=== PATIENT | female | born 1990 | race Caucasian/White ===

== ENCOUNTER → 2021-06-02 15:01 | Outpatient (CLI) | payer BC, SELFPAY ==
--- NOTE | 2021-06-02 15:07 | US_ITS ---
FINAL REPORT CLINICAL HISTORY: THYROMEGALY FINDINGS: THYROID ULTRASOUND Sonographic images of the thyroid was obtained. The right lobe of the thyroid measures 4.3 x 2.0 x 1.4 cm. The left lobe of the thyroid measures 4.5 x 1.8 x 1.5 cm. The isthmus measures 3 mm. There is a heterogeneous parenchyma. There are multiple cysts. There are hypoechoic nodules in the right lobe measuring up to 5 mm and nodules on the left measuring up to 9 mm. This is probably related to multinodular goiter. IMPRESSION: TI-RADS 4 subcentimeter nodules as described. No follow-up required. Reviewed, Interpreted and Dictated by Evaristo Tolentino MD Transcribed by Alexsandra Pandya Authenticated by Evaristo Tolentino MD on 06/02/2021 04:38:[address] [facility]
[2021-06-02 16:13] LABS: Basophils # 0.1 K/mm3 (0-0.2); Basophils % 0.8 % (0.1-2.0); Eosinophils # 0.1 K/mm3 (0.0-0.4); Eosinophils % 1.4 % (0.1-12.0); Hematocrit 42.8 % (37.0-47.0); Hemoglobin 13.7 g/dL (12.2-16.2); Lymphocytes % 24.4 % (10-50); Mean Corpuscular HGB Conc 31.9 g/dL (31.8-35.4); Mean Corpuscular Hemoglobin 28.8 pg (27.0-31.2); Mean Corpuscular Volume 90.1 fl (81-99); Mean Platelet Volume 10.7 fl (7.4-10.4); Monocytes # 0.4 K/mm3 (0.1-1.0); Monocytes % 4.7 % (1.7-9.3); Neutrophils # 5.5 K/mm3 (1.8-7.8); Neutrophils % 68.7 % (37.0-80.0); Platelet Count 268 K/mm3 (142-424); Red Blood Count 4.76 M/mm3 (4.20-5.40); Red Cell Distribution Width 14.7 % (11.5-17.5); White Blood Count 8.1 K/mm3 (4.8-10.8)
[2021-06-02 17:24] LABS: Chloride 106 mmol/L (98-107); Potassium 4.3 mmoL/L (3.5-5.1); Sodium 141 mmol/L (136-145)
[2021-06-02 17:27] LABS: Alanine Aminotransferase 56 U/L (12-78); Albumin Level 4.6 g/dl (3.5-5.0); Albumin/Globulin Ratio 1.9 (1.1-1.8); Alkaline Phosphatase 85 U/L (38-126); Anion Gap 14.3 mEq/L (5-15); Aspartate Amino Transferase 42 U/L (14-36); Bilirubin,Total 0.4 mg/dl (0.2-1.3); Blood Urea Nitrogen 11 mg/dl (7-17); Carbon Dioxide 25 mmol/L (22.0-30.0); Estimated Glomerular Filt Rate 85 ml/min (>60); GFR (African American) 103 ML/MIN (>60); Globulin 2.4 g/dL (1.3-3.2); Glucose 83 mg/dl (74-100)
[2021-06-02 17:53] LABS: T4 (Thyroxine) 8.2 ug/dl (5.53-11.0)
[2021-06-02 18:07] LABS: Thyroid Stimulating Hormone 2.57 uIU/mL (0.465-4.68)
[2021-06-02 18:53] LABS: Hemoglobin A1C 5.2 % (4.0-6.0)
[2021-06-04 08:15] LABS: Triiodothyronine (T3) Free 3.1 pg/mL (2.0-4.4)
== END ==
PROVIDERS: Internal Medicine Pulmonary Disease; PCP Internal Medicine; Visit Provider Internal Medicine
DX: Z00.00 Encounter for general adult medical examination without abnormal findings (principal); J45.909 Unspecified asthma, uncomplicated; E01.0 Iodine-deficiency related diffuse (endemic) goiter
CPT/HCPCS: 36415; 76536; 80053; 83036; 84436; 84443; 84481; 85025

== ENCOUNTER → 2022-01-03 15:18 | Outpatient (POV) | payer BC, SELFPAY | PROVIDERS: Visit Provider Dermatology | DX: Z00.00 Encounter for general adult medical examination without abnormal findings (principal) ==

== ENCOUNTER → 2022-03-29 10:24 | Outpatient (CLI) | payer OTHER, SELFPAY ==
--- NOTE | 2022-03-29 10:29 | US_ITS ---
FINAL REPORT TECHNIQUE: Sonographic images of the pelvis were obtained transvaginally. CLINICAL HISTORY: Pelvic Pain, Previous RSO and left dermoid cyst FINDINGS: The uterus is anteverted and anteflexed. It measures 8.4 x 5.6 x 1.2 cm. The endometrial stripe measures 12 mm which can be normal in a premenopausal patient. The myometrium is unremarkable. There is a small amount of fluid in the cervix which can also be normal in a premenopausal patient. The right ovary is surgically absent. The left ovary measures 3.7 x 3.7 x 3.5 cm. There is a cystic lesion adjacent to and possibly arising from the left ovary measuring 2.6 cm. This could be a simple cyst or a parovarian cyst. Color imaging to the left ovary is within normal limits. There is no free fluid. IMPRESSION: 1. The uterus within normal limits for age. 2. Simple left ovarian cyst or par ovarian cyst can follow in 6 or 10 weeks if indicated. 3. Small amount of fluid in the cervix can be normal for a premenopausal patient. Reviewed, Interpreted and Dictated by Kristen Gomes MD Transcribed by Alexsandra Pandya Authenticated and [facility]
[2022-03-29 15:12] LABS: Hemoglobin A1C 5.2 % (4.0-6.0)
[2022-03-29 16:29] LABS: Thyroid Stimulating Hormone 2.68 uIU/mL (0.465-4.68)
[2022-03-31 09:07] LABS: FSH 7.3 mIU/mL (.); LH 4.3 mIU/mL (.); Testosterone,Total 30 ng/dL (13-71)
== END ==
PROVIDERS: PCP Emergency Medicine; Visit Provider Obstetrics & Gynecology
DX: R10.2 Pelvic and perineal pain (principal); E88.81 Metabolic syndrome and other insulin resistance; N83.299 Other ovarian cyst, unspecified side
CPT/HCPCS: 36415; 76830; 82626; 83001; 83002; 83036; 84403; 84443

== ENCOUNTER → 2022-07-11 15:04 | Outpatient (CLI) | payer OTHER, SELFPAY ==
--- NOTE | 2022-07-11 15:04 | US_ITS ---
FINAL REPORT CLINICAL HISTORY: ovarian cyst, Hx of Dermoid cyst COMPARISON: 03/29/2022 FINDINGS: Sonographic images of the pelvis were obtained. The uterus measures 9.0 x 4.8 cm. The endometrium measures 8 mm, which is within normal limits. The right ovary is surgically absent. Within the left ovary is a complex cyst which is heterogeneous with adjacent fluid. Previously noted simple cyst arising from the left ovary is not seen on today's exam. IMPRESSION: Complex, heterogeneous cyst in the left ovary with adjacent fluid may represent a recently ruptured or hemorrhagic cyst. Follow-up ultrasound in 10 weeks is recommended. Reviewed, Interpreted and Dictated by Evaristo Tolentino MD Transcribed by Vanessa Ceron Authenticated and [facility]
== END ==
PROVIDERS: PCP Emergency Medicine; Visit Provider Obstetrics & Gynecology
DX: N83.209 Unspecified ovarian cyst, unspecified side (principal)
CPT/HCPCS: 76830

== ENCOUNTER → 2022-10-19 09:51 | Outpatient (CLI) | payer OTHER, SELFPAY ==
[2022-10-19 10:29] LABS: Basophils # 0.1 K/mm3 (0-0.2); Basophils % 0.8 % (0.1-2.0); Eosinophils # 0.1 K/mm3 (0.0-0.4); Eosinophils % 1.8 % (0.1-12.0); Hematocrit 44.4 % (37.0-47.0); Hemoglobin 13.9 g/dL (12.2-16.2); Lymphocytes # 1.5 K/mm3 (0.7-4.5); Lymphocytes % 20.8 % (10-50); Mean Corpuscular HGB Conc 31.3 g/dL (31.8-35.4); Mean Corpuscular Volume 92.8 fl (81-99); Mean Platelet Volume 10.9 fl (7.4-10.4); Monocytes # 0.4 K/mm3 (0.1-1.0); Monocytes % 4.9 % (1.7-9.3); Neutrophils # 5.3 K/mm3 (1.8-7.8); Neutrophils % 71.7 % (37.0-80.0); Platelet Count 223 K/mm3 (142-424); Red Blood Count 4.78 M/mm3 (4.20-5.40); Red Cell Distribution Width 14.5 % (11.5-17.5); White Blood Count 7.4 K/mm3 (4.8-10.8)
[2022-10-19 11:09] LABS: Alanine Aminotransferase 18 U/L (12-78); Albumin Level 4.2 g/dl (3.5-5.0); Albumin/Globulin Ratio 1.9 (1.1-1.8); Alkaline Phosphatase 76 U/L (38-126); Anion Gap 12.1 mEq/L (5-15); Aspartate Amino Transferase 21 U/L (14-36); Blood Urea Nitrogen 15 mg/dl (7-17); Calcium 9.2 mg/dl (8.4-10.2); Carbon Dioxide 26 mmol/L (22.0-30.0); Chloride 107 mmol/L (98-107); Chol/HDL Ratio 2.8 (1-3.5); Cholesterol 115 mg/dl (140-200); Estimated Glomerular Filt Rate 84 ml/min (>60); GFR (African American) 101 ML/MIN (>60); Globulin 2.2 g/dL (1.3-3.2); Glucose 83 mg/dl (74-100); HDL Cholesterol 41 mg/dl (40-60); Potassium 4.1 mmoL/L (3.5-5.1); Sodium 141 mmol/L (136-145); Total Protein,Serum 6.4 g/dl (6.3-8.2); Triglycerides 165 mg/dl (30-150); VLDL Cholesterol 33 mg/dL (0-40)
[2022-10-19 11:20] LABS: Direct LDL Cholesterol 36.45 mg/dL (100-129)
[2022-10-19 11:23] LABS: 25-OH Vitamin D, Total 65.8 ng/mL (30-100)
[2022-10-19 11:28] LABS: Bilirubin,Total 0.1 mg/dl (0.2-1.3)
[2022-10-19 11:52] LABS: Hemoglobin A1C 4.6 % (4.0-6.0)
== END ==
PROVIDERS: PCP Nurse Practitioner Family; Visit Provider Nurse Practitioner Family
DX: N94.6 Dysmenorrhea, unspecified (principal); G47.30 Sleep apnea, unspecified
CPT/HCPCS: 36415; 80053; 80061; 82306; 82626; 83036; 84443; 85025; 95806

== ENCOUNTER → 2022-10-31 15:17 | Outpatient (CLI) | payer OTHER, SELFPAY | PROVIDERS: PCP Emergency Medicine; Visit Provider Internal Medicine Pulmonary Disease | DX: R00.2 Palpitations (principal); R00.0 Tachycardia, unspecified | CPT/HCPCS: 93225 ==

== ENCOUNTER 2023-04-03 12:03 | Outpatient (CLI) | payer OTHER, SELFPAY ==
[2023-04-03 12:54] LABS: Amphetamine/Metha Screen,Urine Positive ng/ml (<1000)
[2023-04-03 12:55] LABS: Barbiturates Screen,Urine Negative ng/ml (<200); Benzodiazepines Screen,Urine Negative ng/ml (<200)
[2023-04-03 12:56] LABS: Cannabinoid Screen,Urine Negative ng/ml (<50); Cocaine Screen,Urine Negative ng/ml (<300)
[2023-04-03 12:57] LABS: Methadone Screen,Urine Negative ng/ml (<300)
[2023-04-03 12:58] LABS: Opiate Screen,Urine Negative ng/ml (<300); Phencyclidine Screen,Urine Negative ng/ml (<25)
== END 2023-04-03 23:59 ==
LOC: LAB.DROPOF 12:04
PROVIDERS: PCP Nurse Practitioner Family; Visit Provider Nurse Practitioner Family
DX: F90.9 Attention-deficit hyperactivity disorder, unspecified type (principal); Z79.899 Other long term (current) drug therapy
CPT/HCPCS: 80307

== ENCOUNTER 2023-07-31 11:19 | Outpatient (POV) | payer OTHER, SELFPAY ==
--- OUTSIDE RECORDS SUMMARY | 2023-07-31 11:22 | XMS_ITS | Patient Health Record ---
Author Name Unknown Organization [facility] Address [address] [facility] [address] [place] [address] Care Team Providers Care Messenger Copy Name Role Phone Gina Roth [phone] Reason For Referral No Information Medications Medication SIG (Take, Route, Frequency, Duration) Notes Start Date End Date Status OneTouch Ultra - In Vitro for 33 Days Active Spironolactone 100 MG Oral for 90 Days Active metFORMIN HCl 500 MG TAKE ONE TABLET BY MOUTH TWICE DAILY Oral for 30 Days Active Adderall XR 20 MG TAKE ONE CAPSULE BY MOUTH EVERY DAY Oral for 30 Days Active buPROPion HCl ER (XL) 150 MG Oral for 30 Days Active Social History Sex Assigned At : Social History Observation Description Sex Assigned At Female Problems Problem Type SNOMED Code ICD Code Onset Dates Problem Status W/U Status Risk Notes Problem Third trimester (80032827) Supervision of other normal , third trimester (Z34.83) 021 Active confirmed Supervision of other normal , third trimester Problem Gynecological examination normal (30782434256300 4) Cervical smear, as part of routine gynecological examination (Z01.419) 020 Active confirmed Annual without abnormal findings Problem Complex cyst of right ovary (58983925692797 106) Complex cyst of right ovary (N83.291) Active confirmed Other ovarian cyst, right side Problem Admission for routine ultrasound (Z36.89) 021 Active confirmed Encounter for other specified screening Problem *Gestational diabetes mellitus in , Insulin controlled (Code also - Weeks of gestation Z3A) (O24.414) Active confirmed Gestational diabetes mellitus in , insulin controlled Problem History and physical examination, follow-up (209213749) *Follow-up for Non-Malignant conditions (code also - acquired absence of organ (Z90.-) and identify personal hx malignant neoplasm (Z85.-)) (Z09) 021 Active confirmed Postoperative examination Problem Torsion of right ovary (41173633669560 103) Torsion of right ovary (N83.511) 020 Active confirmed Torsion of right ovary and ovarian pedicle Plan Of Treatment Next Appt Details Provider Name:Gina Gonzalez, 09/26/2023 01:00:00 PM, [address] [facility] [facility] [address], [place], [address], Medical (General) History Medical History History ICD Code Anxiety Depression ov cysts Surgical History Surgery Date(Month/Year) Cholecystectomy 2012 Tonsilectomy 2004 2020 Hospitalization History Reason Date(Month/Year) tonsils c/s
== END 2023-07-31 23:59 | disposition home or self-care (01) ==
LOC: SC 11:20
PROVIDERS: PCP Nurse Practitioner Family; Visit Provider Dermatology
DX: Z00.00 Encounter for general adult medical examination without abnormal findings (principal)

== ENCOUNTER 2023-08-29 18:55 | Outpatient (CLI) | payer OTHER, SELFPAY ==
[2023-08-29 19:26] LABS: Basophils # 0.1 K/mm3 (0-0.2); Basophils % 1.1 % (0.1-2.0); Eosinophils # 0.1 K/mm3 (0.0-0.4); Eosinophils % 1.9 % (0.1-12.0); Hematocrit 44.4 % (37.0-47.0); Hemoglobin 14.5 g/dL (12.2-16.2); Lymphocytes # 1.9 K/mm3 (0.7-4.5); Lymphocytes % 26.9 % (10-50); Mean Corpuscular HGB Conc 32.6 g/dL (31.8-35.4); Mean Corpuscular Hemoglobin 30.2 pg (27.0-31.2); Mean Corpuscular Volume 92.5 fl (81-99); Monocytes # 0.4 K/mm3 (0.1-1.0); Monocytes % 5.8 % (1.7-9.3); Neutrophils # 4.6 K/mm3 (1.8-7.8); Neutrophils % 64.3 % (37.0-80.0); Platelet Count 242 K/mm3 (142-424); Red Cell Distribution Width 14.5 % (11.5-17.5); White Blood Count 7.1 K/mm3 (4.8-10.8)
[2023-08-29 19:56] LABS: Alanine Aminotransferase 18 U/L (12-78); Albumin Level 4.6 g/dl (3.5-5.0); Alkaline Phosphatase 62 U/L (38-126); Anion Gap 14.7 mEq/L (5-15); Aspartate Amino Transferase 26 U/L (14-36); Bilirubin,Total 0.5 mg/dl (0.2-1.3); Blood Urea Nitrogen 12 mg/dl (7-17); Calcium 9.8 mg/dl (8.4-10.2); Carbon Dioxide 26 mmol/L (22.0-30.0); Chloride 103 mmol/L (98-107); Chol/HDL Ratio 3.3 (1-3.5); Cholesterol 133 mg/dl (140-200); Estimated Glomerular Filt Rate 83 ml/min (>60); GFR (African American) 101 ML/MIN (>60); Globulin 2.3 g/dL (1.3-3.2); HDL Cholesterol 40 mg/dl (40-60); Potassium 4.7 mmoL/L (3.5-5.1); Sodium 139 mmol/L (136-145); Total Protein,Serum 6.9 g/dl (6.3-8.2); Triglycerides 94 mg/dl (30-150); VLDL Cholesterol 19 mg/dL (0-40)
[2023-08-29 19:59] LABS: Glucose 51 mg/dl (74-100)
[2023-08-29 20:08] LABS: Direct LDL Cholesterol 50.28 mg/dL (100-129)
[2023-08-29 20:14] LABS: 25-OH Vitamin D, Total 58.3 ng/mL (30-100); T4 (Thyroxine) 8.5 ug/dl (5.53-11.0)
[2023-08-29 20:30] LABS: Thyroid Stimulating Hormone 3.29 uIU/mL (0.465-4.68)
[2023-08-31 08:22] LABS: FSH 3.4 mIU/mL (.); LH 4.9 mIU/mL (.)
== END 2023-08-29 23:59 | disposition home or self-care (01) ==
LOC: LAB 18:57
PROVIDERS: PCP Nurse Practitioner Family; Visit Provider Nurse Practitioner Family
DX: N94.6 Dysmenorrhea, unspecified (principal); E11.9 Type 2 diabetes mellitus without complications; Z79.85 Long-term (current) use of injectable non-insulin antidiabetic drugs; D35.2 Benign neoplasm of pituitary gland; E88.81 Metabolic syndrome and other insulin resistance; Z68.27 Body mass index [BMI] 27.0-27.9, adult
CPT/HCPCS: 80050; 80053; 80061; 82306; 82626; 83001; 83002; 84436; 84443; 85025

== ENCOUNTER 2023-09-14 08:05 | Outpatient (CLI) | payer OTHER, SELFPAY ==
--- NOTE | 2023-09-14 08:05 | MR_ITS ---
FINAL REPORT CLINICAL HISTORY: F/U Pituitary adenoma FINDINGS: Multiplanar MR imaging of the brain was performed without and with contrast with attention to the pituitary. There is no evidence of intracranial hemorrhage or mass. No abnormal extra-axial fluid collection is seen. The ventricular size is within normal limits. There is no evidence of shift of the midline structures. The posterior fossa and brainstem have an unremarkable appearance. No area of abnormal restricted diffusion is identified. No abnormal contrast enhancement is seen. Normal major vessel vascular flow voids are noted. There is a 7 mm cystic mass in the left side of the pituitary. This does not show significant contrast enhancement, may represent a pituitary cyst versus cystic adenoma. No other mass is identified. The pituitary stalk is midline. IMPRESSION: No acute intracranial abnormality identified. Pituitary cyst versus cystic adenoma. Reviewed, Interpreted and Dictated by Mars Valera III, MD Transcribed by Marla Schulte Authenticated and [facility]
[2023-09-14] MEDS: GADOTERIDOL INJ 20ML SYRINGE 16 ML IV (09:29)
[2023-09-14] MEDS: SODIUM CHLORIDE 0.9% 10ML SYR (RAD ONLY) 10 ML IV (09:29)
[2023-09-14] MEDS: 0.9 % SODIUM CHLORIDE 50 ML VIAL 25 ML IV (09:29)
== END 2023-09-14 23:59 | disposition home or self-care (01) ==
LOC: RAD 08:05
PROVIDERS: PCP Nurse Practitioner Family; Visit Provider Nurse Practitioner Family
DX: D35.2 Benign neoplasm of pituitary gland (principal)
CPT/HCPCS: 70553; A9576

== ENCOUNTER 2023-10-17 15:37 | Outpatient (CLI) | payer OTHER, SELFPAY ==
--- OUTSIDE RECORDS SUMMARY | 2023-10-17 15:40 | XMS_ITS ---
Author Organization [facility] Address [address] [facility] [address] [place] [address] Care Team Providers Care Purse Framer Name Role Phone Gina Roth [phone] Social History Sex Assigned At : Social History Observation Description Sex Assigned At Female Encounters Encounter Location Date Provider Diagnosis [facility] [address] [facility] [address] [place] [address] 09/25/2023 Gina Roth Plan Of Treatment No Information Progress Notes * Destiny NEGRO NDOB:1990 (33 yo F)Acc No.[id number]:09/25/2023 Patient:?Sarita NEGROiban Goddard :1990???Age:33 Y???Sex:Female [address] [place], [place], [place] [address] Subjective: * Chief Complaints: * ??? * Medical History:? * Surgical History:? * Hospitalization/Major Diagno stic Procedure:? * Medications:? Objective: * Vitals:? * Physical Examination:? Assessment: Plan: * Treatment: * Procedure Codes:? * true * Date:? Generated for Fidel fontana/Reinier/eTransmitting on:?10/17/2023 03:40 PM EDT
--- OUTSIDE RECORDS SUMMARY | 2023-10-17 15:41 | XMS_ITS | Patient Health Record ---
Author Organization [facility] Address [address] [place] [address] Care Team Providers Care Tableau Lead Name Role Phone Gina Roth Unavailable [phone] Results Component Value Reference Range Notes Pap w/reflex HPV Reviewed date:10/01/2023 04:51:41 PM Interpretation:Normal Performing Lab:[facility] [place] CLIA ID [id number], [address], [address], [place] [address], Director - Merna Jung MD Notes/Report: Any Nucleic Acid Amplification testing is performed on the [employer] [place]. Diagnosis: Negative for intraepithelial lesion or malignancy. AP results DIAGNOSIS: Negative for intraepithelial lesion or malignancy. Specimen Adequacy: Satisfactory for interpretation with endocervical/transforma tion zone component present. Pertinent Clinical History/History of Surgery: none Collection Technique: [place] only Results of Last Pap: negative FINAL CHIEF OF ANESTHESIOLOGY CYTOLOGY REPORT LMP: unknown Date of Last Pap: Not provided Specimen Source: Cervical/Endocervical Specimen Type: ThinPrep Other Gynecological Patient Information: Not provided Recommendation: Follow-up based on current clinical guidelines and/or clinical consideration. Screening note: This liquid based pap test was screened manually, without image assistance. Negative Educational Note: The pap screening test aids in the detection of premalignant and malignant states of the cervix. False positive and negative results may occur. It is not a diagnostic test. If abnormal cells are reported, follow-up based on current clinical guidelines and/or clinical consideration is recommended. Chantel Stevens [employer] [employer] CPT Codes: 92486 ICD Codes: Z01.419 Reason For Referral No Information Medications Medication SIG (Take, Route, Fr equency, Duration) Notes Start Date End Date Status Mounjaro 5 MG/0.5ML Subcutaneous for 28 Days Active Adderall XR 20 MG TAKE ONE CAPSULE BY MOUTH EVERY DAY Oral for 30 Days Active Active Social History Tobacco Use: Social History Observation Description Date Details (start date - stop date) Never Smoker NA - NA Sex Assigned At : Social History Observation Description Sex Assigned At Female Tobacco Control (Standard) Question Answer Notes Tobacco use: Nonsmoker Additional Findings: Tobacco non-user Current no nsmoker Problems Problem Type SNOMED Code ICD Code Onset Dates Problem Status W/U Status Risk Notes Problem Third trimester (63504202) Supervision of other normal , third trimester (Z34.83) Active confirmed Supervision of other normal , third trimester Problem Gynecological examination normal (90139850561315 4) Cervical smear, as part of routine gynecological examination (Z01.419) Active confirmed Annual without abnormal findings Problem Complex cyst of right ovary (03392872720134 106) Complex cyst of right ovary (N83.291) Active confirmed Other ovarian cyst, right side Problem Admission for routine ultrasound (Z36.89) Active confirmed Encounter for other specified screening Problem *Gestational diabetes mellitus in , Insulin controlled (Code also - Weeks of gestation Z3A) (O24.414) Active confirmed Gestational diabetes mellitus in , insulin controlled Problem History and physical examination, follow-up (338392411) *Follow-up for Non-Malignant conditions (code also - acquired absence of organ (Z90.-) and identify personal hx malignant neoplasm (Z85.-)) (Z09) 021 Active confirmed Postoperative examination Problem Torsion of right ovary (10215505341563 103) Torsion of right ovary (N83.511) 020 Active confirmed Torsion of right ovary and ovarian pedicle Vital Signs Blood pressure diastolic 78 mm Hg 09/26/2023 Blood pressure systolic 112 mm Hg 09/26/2023 Weight 173 lbs 09/26/2023 Encounters Encounter Location Date Provider Diagnosis [facility] [address] [facility] [address] [place] [address] 09/26/2023 [facility] 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 Z01.419 [facility] [address] [facility] [address] [place] [address] 09/25/2023 [facility] Assessments Encounter Date Diagnosis (ICD Code) Assessment Notes Treatment Notes Treatment Clinical Notes 09/26/2023 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
--- NOTE | 2023-10-17 15:45 | US_ITS ---
FINAL REPORT TECHNIQUE: Limited sonographic images of the thyroid were obtained. CLINICAL HISTORY: Thyroid Goiter COMPARISON: 06/02/2021 FINDINGS: The thyroid demonstrates heterogeneous echogenicity with numerous small gallstones. The right lobe of the thyroid measures 5.0 cm. The left lobe of the thyroid measures 4.9 cm. The isthmus measures 0.4 cm. Largest nodule on the right measures 0.9 cm and appears solid and hypoechoic. Largest nodule in the isthmus measures 0.9 cm consistent with TI-RADS category 4. IMPRESSION: Thyroid nodules as above. Findings are overall stable. No follow-up is more recommended. Reviewed, Interpreted and Dictated by Mars Valera III, MD Transcribed by Marla Schulte Authenticated and [facility]
== END 2023-10-17 23:59 | disposition home or self-care (01) ==
LOC: RAD 15:38
PROVIDERS: PCP Nurse Practitioner Family; Visit Provider Specialist
DX: E04.9 Nontoxic goiter, unspecified (principal)
CPT/HCPCS: 76536

== ENCOUNTER 2023-10-22 16:18 | Outpatient (CLI) | payer OTHER, SELFPAY ==
[2023-10-22 17:57] LABS: Free T4 (Free Thyroxine) 0.89 ng/dl (0.78-2.19)
[2023-10-22 18:10] LABS: Thyroid Stimulating Hormone 3.78 uIU/mL (0.465-4.68)
[2023-10-24 11:33] LABS: Prolactin 25.4 ng/mL (4.8-33.4); Thyroid Peroxidase Antibodies 88 IU/mL (0-34)
== END 2023-10-22 23:59 | disposition home or self-care (01) ==
LOC: LAB 16:19
PROVIDERS: Specialist; PCP Nurse Practitioner Family; Visit Provider Nurse Practitioner
DX: E04.1 Nontoxic single thyroid nodule (principal); D35.2 Benign neoplasm of pituitary gland
CPT/HCPCS: 36415; 84146; 84439; 84443; 86376

== ENCOUNTER 2023-10-24 15:00 | Outpatient (CLI) | payer OTHER, SELFPAY ==
--- NOTE | 2023-10-24 15:00 | CT_ITS ---
FINAL REPORT TECHNIQUE: Thin section axial CT images with coronal and sagittal reformats were performed through the neck. This study was performed with techniques to keep radiation doses as low as reasonably achievable (ALARA). Individualized dose reduction techniques using automated exposure control or adjustment of mA and/or kV according to the patient's size were employed. CLINICAL HISTORY: enlarged thyroid COMPARISON: None FINDINGS: No adenopathy or mass lesion is present . The nasopharynx, hypopharynx, and oropharynx are unremarkable in appearance. Salivary glands are normal. Larynx is unremarkable. The thyroid gland is enlarged with numerous small nodules, which may represent multinodular goiter. IMPRESSION: Enlarged thyroid gland with numerous small nodules, which may represent multinodular goiter. Reviewed, Interpreted and Dictated by Mars Valera III, MD Transcribed by Cookie Estes Authenticated and [facility]
== END 2023-10-24 23:59 | disposition home or self-care (01) ==
LOC: RAD 15:00
PROVIDERS: PCP Nurse Practitioner Family; Visit Provider Nurse Practitioner
DX: E01.0 Iodine-deficiency related diffuse (endemic) goiter (principal)
CPT/HCPCS: 70490

== ENCOUNTER 2024-01-31 15:31 | Outpatient (CLI) | payer OTHER, SELFPAY ==
[2024-01-31 16:49] LABS: Free T4 (Free Thyroxine) 0.88 ng/dl (0.78-2.19)
[2024-01-31 17:02] LABS: Thyroid Stimulating Hormone 0.95 uIU/mL (0.465-4.68)
[2024-02-01 10:17] LABS: Thyroid Peroxidase Antibodies 83 IU/mL (0-34)
== END 2024-01-31 23:59 | disposition home or self-care (01) ==
LOC: LAB 15:33
PROVIDERS: PCP Nurse Practitioner Family; Visit Provider Nurse Practitioner
DX: E06.3 Autoimmune thyroiditis (principal); E04.2 Nontoxic multinodular goiter
CPT/HCPCS: 36415; 84439; 84443; 86376

== ENCOUNTER 2024-04-23 09:59 | Outpatient (CLI) | payer OTHER, SELFPAY ==
--- NOTE | 2024-04-23 10:00 | US_ITS ---
FINAL REPORT TECHNIQUE: Sonographic images of the thyroid gland were obtained in the longitudinal and transverse planes. CLINICAL HISTORY: thyroid goiter, and thyroid us COMPARISON: 10/17/2023 FINDINGS: The right lobe measures 52 x 13 x 15 mm. There are multiple hypoechoic small nodules in the right lobe, largest measures 10 mm and was 9 mm. No convincing new nodules are identified. The left lobe measures 16 x 53 x 13 mm. Multiple small nodules are seen on the left, all subcentimeter. The isthmus measures 3 mm. Hypoechoic nodule measuring approximately 10 mm, was 9 mm, is noted in the isthmus. IMPRESSION: Multiple bilateral predominantly subcentimeter hypoechoic thyroid nodules which are unchanged from the prior exam. Recommend continued follow-up per TI-RADS criteria. Reviewed, Interpreted and Dictated by Kristen Gomes MD Transcribed by Anna Alvares Authenticated and [facility]
== END 2024-04-23 23:59 | disposition home or self-care (01) ==
LOC: RAD 10:00
PROVIDERS: PCP Nurse Practitioner Family; Visit Provider Nurse Practitioner
DX: E04.1 Nontoxic single thyroid nodule (principal)
CPT/HCPCS: 76536

== ENCOUNTER 2024-10-29 14:55 | Outpatient (CLI) | payer OTHER, SELFPAY ==
--- OUTSIDE RECORDS SUMMARY | 2024-09-22 11:00 | XMS_ITS | Encounter Summary ---
[facility] Address [address] [place] [id number] Care Team Providers Care Bar Useful Or Busser Name Role Phone Nayeli Copeland APRN Primary Care Provider [phone] Encounter Details Date Type Department Care Team (Late st Contact Info) Description 09/22/2024 11:00 AM EDT Lab [facility] [address] [place] [phone] examination or test, positive result Social History Tobacco Use Types Packs/Day Years Used Date Smoking Tobacco: Never Smokeless Tobacco: Never Alcohol Use Standard Drinks/Week Comments Not Currently 0 (1 standard drink = 0.6 oz pur e alcohol) socially Adrian Depression Scale Answer Date Recorded Adrian Depression Scale Total 6 06/27/2020 The thought [...] Urine Negative Negative 09/22/2024 11:33 AM EDT [facility] Urine Urine specimen obtained by clean catch procedure / Unknown Collection / Unknown 09/22/2024 10:46 AM EDT 09/22/2024 10:46 AM EDT Narrative [facility] - 09/22/2024 11:33 AM EDT [...] Gina Roth MD URINE ORDERABLES Final Result [facility]
[address] [place] [address], * (ABNORMAL) Urine Culture - Urine, Urine, Clean Catch (09/22/2024 10:46 AM EDT) Urine Culture 25,000 CFU/mL Lactobacillus species(A) SOLA 09/23/2024 1:38 PM EDT [facility] Comment: Based on laboratory diagnosis criteria, these organisms are common urogenital commensal javan and have not been associated with urinary tract infections; clinical correlation is recommended. Urine Urine specimen obtained by clean catch procedure / Unknown Collection / Unknown 09/22/2024 10:46 AM EDT 09/22/2024 10:46 AM EDT [facility] - 09/23/2024 1:38 PM EDT Colonization of the urinary tract without infection is common. Treatment is discouraged unless the patient is symptomatic, , or undergoing an invasive urologic procedure. us Gina Roth MD MICROBIOLOGY - GENERAL ORDERAB LES Final Result Performing Organization Address [facility]/ZIP Co de Phone Number [facility]
[address] [place] [address], * Treponema pallidum AB w/Reflex RPR (09/22/2024 10:46 AM EDT) Treponemal AB Total Non-Reacti ve Non-React consuelo 09/22/2024 2:51 PM EDT [facility] Blood Venipuncture / Unknown 09/22/2024 10:46 AM EDT 09/22/2024 10:46 AM EDT [facility] - 09/22/2024 2:51 PM EDT Reactive results will reflex RPR testing. us Gina Roth MD LAB BLOOD ORDERABLES Final Res ult Performing Organization Address [facility]/ZIP Co de Phone Number [facility]
[address] [place] [address], * Rubella Antibody, IgG (09/22/2024 10:46 AM EDT) Rubella Antibodies, IgG 3.10 Immune >0.99 index 09/23/2024 6:09 AM EDT [facility] Comment: Non-immune <0.90 Equivocal 0.90 - 0.99 Immune >0.99 Blood Venipuncture / Unknown 09/22/2024 10:46 AM EDT 09/22/2024 10:46 AM EDT Narrative [facility] - 09/23/2024 6:09 AM EDT Performed at: [address] [place] [id number] Cupola Operator Insulation: Krishna Villalba PhD, Phone: [phone] us Gina Roth MD LAB BLOOD ORDERABLES Final Res ult [address] [address], * HIV-1 / O / 2 Ag / Antibody 4th Generation (09/22/2024 10:46 AM EDT) HIV DUO Non-Reacti ve Non-Reacti ve 09/22/2024 2:51 PM EDT [facility] Blood Venipuncture / Unknown 09/22/2024 10:46 AM EDT 09/22/2024 10:46 AM EDT Narrative [facility] - 09/22/2024 2:51 PM EDT The [...] MD LAB BLOOD ORDERABLES Final Res ult [facility]
[address] [place] [address], * Hepatitis C Antibody (09/22/2024 10:46 AM EDT) Hepatitis C Ab Non-Reacti ve Non-Reacti ve 09/22/2024 2:51 PM EDT [facility] Blood Venipuncture / Unknown 09/22/2024 10:46 AM EDT 09/22/2024 10:46 AM EDT us Gina Roth MD LAB BLOOD ORDERABLES Final Res ult Performing Organization Address City/[facility]/ZIP Co de Phone Number [facility]
[address] [place] [address], * Hepatitis B Surface Antigen (09/22/2024 10:46 AM EDT) Pathologist [facility] Hepatitis B Surface Ag Non-Reacti ve Non-Reacti ve 09/22/2024 2:43 PM EDT [facility] Blood Venipuncture / Unknown 09/22/2024 10:46 AM EDT 09/22/2024 10:46 AM EDT us Gina Roth MD LAB BLOOD ORDERABLES Final Res ult Performing Organization Address [facility] Co de Phone Number [facility]
[address] [place] [address], [place] [phone] * Glucose, Random (09/22/2024 10:46 AM EDT) [facility] Glucose 99 65 - 99 mg/dL 09/22/2024 2:59 PM EDT [facility] Blood Venipuncture / Unknown 09/22/2024 10:46 AM EDT 09/22/2024 10:46 AM EDT us Gina Roth MD LAB BLOOD ORDERABLES Final Res ult Performing Organization Address [facility] Co de Phone Number [facility]
[address] [place] [address], [place] [phone] * Urine Drug Screen - Urine, Clean Catch (09/22/2024 10:46 AM EDT) Pathologist [facility] THC, Screen, Urine Negative Negative 2024 11:14 AM EDT [facility] Phencyclidine (PCP), Urine Negative Negative 09/22/2024 11:14 AM EDT [facility] Cocaine Screen, Urine Negative Negative 09/22/2024 11:14 AM T [facility] Methamphetamine, Ur Negative Negative 09/22 11:14 AM EDT [facility] Opiate Screen Negative Negative 09/22/2024 11:14 AM EDT [facility] Amphetamine Screen, Urine Negative Negative 09/22/2024 11:14 AM [facility] Benzodiazepine Screen, Urine Negative Negative 09/22/2024 11:14 AM [facility] Tricyclic Antidepressants Screen Negative Negative 09/22/2024 11:14 AM [facility] Methadone Screen, Urine Negative Negative 09/22/2024 11:14 AM [facility] Barbiturates Screen, Urine Negative Negative 09/22/2024 11:14 AM EDT [facility] Oxycodone Screen, Urine Negative Negative 09/22/2024 11:14 AM [facility] Buprenorphine, Screen, Urine Negative Negative 09/22/2024 11:14 AM [facility] Urine Urine specimen obtained by clean catch procedure / Unknown Collection / Unknown 09/22/2024 10:46 AM EDT 09/22/2024 10:46 AM EDT [facility] - 09/22/2024 11:14 AM EDT [...] Gina Roth MD URINE ORDERABLES Final Result [facility]
[address] [place] [address], [place] [phone] * Chlamydia trachomatis, Neisseria gonorrhoeae, Trichomonas vaginalis, [...] - 09/24/2024 6:09 AM EDT Performed at: [address] [place] [id number] Cupola Operator Insulation: Romi Ivory MD, Phone: [phone] Gina Roth MD MICROBIOLOGY - GENERAL ORDERAB LES Final Result Performing Organization Address City/[facility]/ZIP Co de Phone Number [facility] [address] [place] [address], * Antibody Screen (09/22/2024 10:46 AM EDT) Antibody Screen Negative 09/22/2024 11:39 AM EDT [facility] Blood Venipuncture / Unknown 09/22/2024 10:46 AM EDT 09/22/2024 10:46 AM EDT Gina Roth MD BLOOD BANK TEST ORDERABLES Fin al Result [facility]
[address] [place] [id number], * ABO / Rh (09/22/2024 10:46 AM EDT) Pathologist [facility] ABO Type B 09/22/2024 11:23 AM EDT [facility] RH type Positive 09/22/2024 11:23 AM EDT [facility] Blood Venipuncture / Unknown 09/22/2024 10:46 AM EDT 09/22/2024 10:46 AM EDT Gina Roth MD BLOOD BANK TEST ORDERABLES Fin al Result [facility]
[address] [place] [address], * (ABNORMAL) CBC (No Diff) (09/22/2024 10:46 AM EDT) [facility] WBC 7.71 3.40 - 10.80 10*3/mm3 09/22/2024 2:19 PM EDT [facility] RBC 4.40 3.77 - 5.28 10*6/mm3 09/22/2024 2:19 PM EDT [facility] Hemoglobin 13.5 12.0 - 15.9 g/dL 09/22/2024 2:19 PM EDT [facility] Hematocrit 40.0 34.0 - 46.6 % 09/22/2024 2:19 PM EDT [facility] MCV 90.9 79.0 - 97.0 fL 09/22/2024 2:19 PM EDT [facility] MCH 30.7 26.6 - 33.0 pg 09/22/2024 2:19 PM EDT [facility] MCHC 33.8 31.5 - 35.7 g/dL 09/22/2024 2:19 PM EDT [facility] RDW 13.4 12.3 - 15.4 % 09/22/2024 2:19 PM EDT [facility] RDW-SD 44.4 37.0 - 54.0 fl 09/22/2024 2:19 PM EDT [facility] MPV 13.1(H) 6.0 - 12.0 fL 09/22/2024 2:19 PM EDT [facility] Platelets 183 140 - 450 10*3/mm3 09/22/2024 2:19 PM EDT [facility] Blood Venipuncture / Unknown 09/22/2024 10:46 AM EDT 09/22/2024 10:46 AM EDT Gina Roth MD LAB BLOOD ORDERABLES Final Res ult Performing Organization Address City/[facility]/ZIP Co de Phone Number [facility]
[address] [place] [address], * Lab Collection Processing (09/22/2024 10:46 AM EDT) Blood Venipuncture / Unknown 09/22/2024 10:46 AM EDT 09/22/2024 10:46 AM EDT Gina Roth MD LAB BLOOD ORDERABLES Final Res ult Performing Organization Address City/[facility]/ZIP Co de Phone Number [facility]
[address] [place] [address], documented in this encounter Visit Diagnoses Diagnosis examination or test, positive result documented in this encounter Care Teams Bar Useful Or Busser Relationship Specialty Start Date End Date Nayeli Copeland APRN [address] [place] [address] PCP - General Nurse Practitioner 05/26/20 documented as of this encounter
--- OUTSIDE RECORDS SUMMARY | 2024-10-28 09:15 | XMS_ITS ---
Author Organization [facility] Address [address] [facility] [address] [place] [address] Care Team Providers Care Vamp Throater Name Role Phone Gina Roth Unavailable [phone] Nemo James Unavailable [phone] Results Component Value Reference Range Flag Notes Génesis/Bacterial Vaginosis, ROSELIA (Aptima) (Not yet reviewed by provider) Interpretation:+yeast Performing Lab:[facility] - HELENA CLIA ID [id number], [address], [address], [place] [address], Director - Ben Landaverde MD Notes/Report: Bacterial Vaginosis Negative Negative The Aptima BV assay is a real time NAAT TMA assay developed for use on the automated [place] system that detects and discriminates RNA markers from the Lactobacillus species group (L. gasseri, L. crispatus and L. jensenii), Gardnerella vaginalis, and Atopobium vaginae. The Aptima BV assay uses an algorithm for bacterial vaginosis based on detection of target organisms. Génesis species Positive Negative A The CV Assay is a real time TMA assay developed for use on the automated [place] system that detects following Génesis species organisms (C. albicans, C. tropicalis, C. parapsilosis, C. dubliniensis), but the assay does not differentiate among C spp. Génesis glabrata Negative Negative REASON FOR VISIT 16 weeks Medications Medication SIG (Take, Route, Frequency, Duration) Notes Start Date End Date Status Sertraline HCl 25 MG Tablet 1 tablet Orally Once a day A ctive 27-0.8 MG Tablet 1 tablet Orally Active Social History Tobacco Use: Social History Observation Description Date Details (start date - stop date) Never Smoker NA - NA Sex Assigned At : Social History Observation Description Sex Assigned At Female Social History Tobacco Use: Social Info Question Answer Notes Tobacco Control (Standard) Tobacco use: Nonsmoker Additional Findings: Tobacco non-user Current no nsmoker Problems Problem Type SNOMED Code ICD Code Onset Dates Problem Status W/U Status Risk Notes Problem Anxiety (22380899) Anxiety (F41.9) Active confirmed Problem Encounter for supervision of other normal in second trimester (Z34.82) Active confirmed Vital Signs Weight 186.4 lbs 10/28/2024 Encounters Encounter Location Date [facility] [address] [place] [address] 10/28/2024 Nemo James Encounter for supervision of other normal in second trimester Z34.82 ; 15 weeks gestation of Z3A.15 ; Vaginal discharge N89.8 ; Anxiety F41.9 and Acute nonintractable headache, unspecified headache type R51.9 Assessments Encounter Date Diagnosis (ICD Code) Assessment Notes Treatment Notes Treatment Clinical Notes Section Notes 10/28/2024 Encounter for supervision of other normal in second trimester (ICD-10 - Z34.82) 10/28/2024 15 weeks gestation of (ICD-10 - Z3A.15) 10/28/2024 Vaginal discharge (ICD-10 - N89.8) 10/28/2024 Anxiety (ICD-10 - F41.9) 10/28/2024 Acute nonintractable headache, unspecified headache type (ICD-10 - R51.9) Plan Of Treatment Medication Medication Name Sig Start Date Stop Date Notes Sertraline HCl 25 MG Tablet 1 tablet Orally Once a day 27-0.8 MG Tablet 1 tablet Orally Pending Test Test Name Order Date Génesis/Bacterial Vaginosis, ROSELIA (Aptima ) 10/28/2024 Future Test Test Name Order Date *US OB Detailed Anatomy 10/28/2024 Next Appt Details Follow Up: 4 Weeks, Reason: Provider Name:Gina Roth, 11/19/2024 11:00:00 AM, [address], [address], [place], [address], Provider Name:Gina Roth, 11/19/2024 11:15:00 AM, [address], [address], [facility], [address], Provider Name:Gina Roth, 12/24/2024 11:30:00 AM, [address], [address], [place], [address], Provider Name:Gina Gonzalez, 01/21/2025 01:45:00 PM, [address], [address], [place], [address], Provider Name:Gina Gonzalez, 02/04/2025 11:15:00 AM, [address], [address], [place], [address], Provider Name:Gina Gonzalez, 02/18/2025 01:00:00 PM, [address], [address], [place], [address], Provider Name:Nemo James, 03/03/2025 01:30:00 PM, [address], [address], [facility], [address], Provider Name:Gina Roth, 03/18/2025 11:30:00 AM, [address], [address], [facility], [address], Provider Name:Gina Gonzalez, 03/25/2025 11:30:00 AM, [address], [address], [place], [address], Provider Name:Gina Gonzalez, 04/01/2025 11:30:00 AM, [address], [address], [place], [address], Provider Name:Gina Gonzalez, 04/08/2025 11:15:00 AM, [address], [address], [place], [address], Provider Name:Gina Roth, 04/15/2025 11:30:00 AM, [address] [address], [place], [address], History and Physical Notes * Examination Category Sub-Category Detail Notes Category Not es Implant Coordinator Implant Coordinator Status ., Implant Coordinator pr esent during physical exam. Name: Title: [facility] Progress Notes * Destiny NEGRO NDOB:1990 (34 yo F)Acc No.[id number]:10/28/2024 Progress Note Patient: Destiny Aguilar N Provider: Indio James MD :1990 A ge:34 Y S ex:Female Date:10/28/2024 Address:[address] [place] [address] Subjective: * Chief Complaints: * 1 6 weeks * Medical History: Anxiety Depression Ov cysts Hashoimotos *Gestational diabetes mellitus in , Insulin controlled (Code also - Weeks of gestation Z3A) Torsion of right ovary Medical History Verified * Outside Deliverer History: P ap Smear History: D ate of Last Pap/HPV: 2 021 wnl L ast Pap/HPV Results: N ormal Pap H istory of Abnormal Pap Smears: Y es 2015 D iagnostic/Treatment: N one H PV Vaccination Series Complete: Y es M enstrual History: C urrently having menstrual cycles? Y es A ge of Onset: 1 3 L MP: 0 09/09/2023 L ength Between Cycles: 2 1-32 Days L ength of Flow: 2 -7 Days F low Volume: M oderate C ramping Associated with Period: M oderate Discomfort T elodia between periods: 2 9-30 D uration: 3 days S exual Activity/Contraception: E jarad been sexually active? Y es C urrently sexually active? Y es G ghislaine of sexual partners: M adilson A ge of first sexual activity: 1 8 C ontraception: N one H istory of STIs: N one B irth control (Historical) w ithdrawal method. L ast Pap Smear/HPV Date (Historical) 1 05/01/2020, Negative, High Risk HPV Negative. * OB History: P regnancy History (GPA) Total Pregnancies 1 Full Term 1 Living 1 C-Sections 0 C-Sections 1 G P : 1 Para: 1 P regnancy # 1: 0 06/27/2020, Female. * Surgical History: 2020 Cholecystectomy 2012 Tonsilectomy 2003 Surgical History verified. * Hospitalization/Major Diagno stic Procedure: c/s tonsils Hospitalization Verified. * Family History: F amily History Verified.. Abnormal pap, Anxiety, Breast cancer, Cervical cancer, Depression, Diabetes, Hypothyriod, Obesity, Uterine cancer. * Social History: T obacco Use: T obacco Control (Standard) T obacco use: N onsmoker A dditional Findings: Tobacco non-user C urrent nonsmoker S ocial History Verified. * Medications: T akingPrenatal( MV-Min-Fe Fum-FA-DHA) Sertraline HCl 25 MG Tablet 1 tablet Orally Once a day Medication List reviewed and reconciled with the patientTaking ( MV-Min-Fe Fum-FA-DHA) Taking Sertraline HCl 25 MG Tablet 1 tablet Orally Once a day Medication List reviewed and reconciled with the patient Objective: * Vitals: W t: 186.4 lbs. * P ast Orders: L ab:CBC (NO DIFF) (Order Date - 09/22/2024) (Collection Date & Time - 09/22/2024 12:46 PM) Result: Normal Value Reference Range WBC, CORRECTED 7.71 3.40-10.80 - 10*3/mm3 ERYTHROCYTES IN BLOOD BY AUTOMATED COUNT 4.40 3.77-5.28 - 10*6/mm3 HEMOGLOBIN (MG/DL) IN BLOOD 13.5 12.0-15.9 - g/dL HEMATOCRIT (%) BY AUTOMATED COUNT 40.0 34.0-46.6 - % RBC MCV (FL) BY AUTOMATED COUNT 90.9 79.0-97.0 - fL RBC MCH (PG) BY AUTOMATED COUNT 30.7 26.6-33.0 - pg RBC MCHC (G/DL) BY AUTOMATED COUNT 33.8 31.5-35.7 - g/dL RBC RDW (%) BY AUTOMATED COUNT 13.4 12.3-15.4 - % RDW-SD 44.4 37.0-54.0 - fl MEAN PLATELET VOLUME (FL) BY AUTOMATED COUNT 13.1 H 6.0-12.0 - fL PLATELETS BY AUTOMATED COUNT 183 140-450 - 10*3/mm3 L ab:URINE DRUG SCREEN (Order Date - 09/22/2024) (Collection Date & Time - 09/22/2024 12:46 PM) Result: Negative Value Reference Range THC URINE Negative Negative - PHENCYCLIDINE SCREEN URINE Negative Negative - COCAINE, URINE Negative Negative - METHAMPHETAMINE Negative Negative - OPIATES URINE Negative Negative - AMPHETAMINE SCREEN URINE Negative Negative - BENZODIAZEPINE SCREEN, URINE Negative Negative - TRICYCLIC ANTIDEPRESSANTS SCREEN URINE Negative Negative - METHADONE SCREEN, URINE Negative Negative - BARBITURATE SCREEN, URINE Negative Negative - OXYCODONE SCREEN URINE Negative Negative - BUPRENORPHINE Negative Negative - L ab:URINE CULTURE (Order Date 09/22/2024) (Collection Date & Time - 09/22/2024 12:46 PM) Result: lactobacillus - not clinically significant Value Reference Range URINE CULTURE 1371 LACTOBACILLUS SPECIES A - L ab:ANTIBODY SCREEN (Order Date 09/22/2024) (Collection Date & Time - 09/22/2024 12:46 PM) Result: Negative Value Reference Range ANTIBODY SCREEN Negative - L ab:HIV-1/O/2 ANTIGEN/ANTIBODY, 4TH GENERATION (Order Date 09/22/2024) (Collection Date & Time - 09/22/2024 12:46 PM) Result: Negative Value Reference Range HIV DUO Non-Reactive Non-Reacti - L ab:ABO/RH (Order Date 09/22/2024) (Collection Date & Time - 09/22/2024 12:46 PM) Result: B+ Value Reference Range ABO TYPE B - RH TYPE Positive - L ab:RUBELLA ANTIBODY, IGG (Order Date 09/22/2024) (Collection Date & Time - 09/22/2024 12:46 PM) Result: Immune Value Reference Range RUBELLA ANTIBODIES, IGG (REF) 3.10 Immune >0. - index L ab:TREPONEMA PALLIDUM (SYPHILIS) SCREENING CASCADE (Order Date 09/22/2024) (Collection Date & Time - 09/22/2024 12:46 PM) Result: Negative Value Reference Range TREPONEMAL AB TOTAL Non-Reactive Non-Reacti - L ab:GLUCOSE, RANDOM (Order Date 09/22/2024) (Collection Date & Time - 09/22/2024 12:46 PM) Result: Normal Value Reference Range GLUCOSE RANDOM 99 65-99 - mg/dL L ab:CHLAMYDIA TRACHOMATIS, NEISSERIA GONORRHOEAE, TRICHOMONAS VAGINALIS, PCR (Order Date - 09/22/2024) (Collection Date & Time - 09/22/2024 12:46 PM) Result: Negative Value Reference Range CHLAMYDIA TRACHOMATIS, ROSELIA Negative Negative - GONOCOCCUS BY ROSELIA Negative Negative - TRICHOMONAS VAG Negative Negative - L ab:FENTANYL, URINE (Order Date - 09/22/2024) (Collection Date & Time - 09/22/2024 12:46 PM) Result: Negative Value Reference Range FENTANYL URINE Negative Negative - L ab:Non Invasive Testing (Order Date - 09/29/2024) (Collection Date & Time - 09/22/2024 04:12 PM) Result: low fraction Notes: low fraction, needs redrawWolfe, Sydney [facility] 10/06/2024 02:24:45 PM EDT > Pt aware and does not want repeat. * Examination: C haperone: Implant Coordinator Status . , Implant Coordinator present during physical exam. Name: Title: DOUG CARUSO. Assessment: * Assessment: 1. E ncounter for supervision of other normal in second trimester - Z34.82 (Primary)? 2. 1 5 weeks gestation of - Z3A.15 3 . V aginal discharge - N89.8 4 . A nxiety - F41.9 5 . A cute nonintractable headache, unspecified headache type - R51.9 Plan: * Treatment: 2. V aginal discharge L AB: Génesis/Bacterial Vaginosis, ROSELIA (Aptima) 3. A nxiety Continue Sertraline HCl Tablet, 25 MG, 1 tablet, Orally, Once a day. * Procedure Codes: 0 502F HEDIS SUBSEQUENT CARE * Follow Up: 4 Weeks Billing Information: * Visit Code: 16334 Office/Outpatient visit, est patient. 54941 Office/Outpatient visit, est patient. * Procedure Codes: 0502F HEDIS SUBSEQUENT CARE. * Sign off status: Completed Visit Status: C HK (Check Out) true * Provider: Indio James MD Date: 0 10/28/2024 Generated for Fidel fontana/Reinier/Jennifer on: 0 10/29/2024 02:58 PM EDT
--- OUTSIDE RECORDS SUMMARY | 2024-10-29 14:57 | XMS_ITS | Encounter Summary ---
Author Organization [facility] Address [address] [place] [address] Care Team Providers Care Terminal Manager Name Role Phone Nayeli Copeland APRN Primary Care Provider [phone] Encounter Details Date Type Department Care Team (Latest Contact Info) Description 09/22/2024 Travel Social History Tobacco Use Types Packs/Day Years Used Date Smoking Tobacco: Never Smokeless Tobacco: Never Alcohol Use Standard Drinks/Week Comments Not Currently 0 (1 standard drink = 0.6 oz pur e alcohol) socially Bethel Depression Scale Answer Date Recorded Bethel Depression Scale Total 6 06/27/2020 The thought [...] on file documented as of this encounter Visit Diagnoses Not on filedocumented in this encounter Care Teams Terminal Manager Relationship Specialty Start Date End Date Nayeli Copeland APRN [address] [place] [address] PCP - General Nurse Practitioner 05/26/20 documented as of this encounter
--- OUTSIDE RECORDS SUMMARY | 2024-10-29 14:58 | XMS_ITS | Patient Health Record ---
Author Organization [facility] Address [address] [place] [address] Care Team Providers Care Bowling Pin Setters Installer Name Role Phone Gina Roth Unavailable [phone] Nemo James Unavailable [phone] Genoveva Greene Unavailable [phone] Allergies Allergen (clinical drug ingredient) Drug/Non Drug Allergy documented on EMR Reaction Allergy Type Onset Date Status MORPHINE SULFATE (MORPHINE SULFATE TABS) Unspecified Drug Allergy 11/05/2019 Active Results Component Value Reference Range Flag Notes *US OB Complete Transabdomin al/Vaginal Reviewed date:10/07/2024 07:10:53 PM Interpretation: Performing Lab: Notes/Report: [facility] Transabdominal Obstetric Study Report Name: JAMARCUS NEGRO Accession/Encounter No:[id number] Procedure/Order ID: [id number] : 1990 Age: 34 Gender: F Study Date: Sep 22, 2024 Study Time: 09:35 AM Reading Group: Sonja Elizondo MD Referring Group: Gina Roth MD Ordering Phys: Gina Roth MD Performing User: Latrice Neville RDMS Equipment: Affiniti 30 Study Quality: Good Indications: Estimation of gestational age Risk Factors: Post right oophorectomy A transabdominal OB ultrasound was performed. Disclaimer: Ultrasound cannot detect all structural defects or underlying genetic abnormalities. Additionally, some abnormalities develop over time and/or are not detectable until after . General Information Trimester: 1st trimester Gestations: 1 : Intrauterine Gestational Age (Best) Best: 10w 3d Determined by: LMP DALI: 2025-04-17 Gestational Age (LMP) LMP: 10w 3d First Day of LMP: 2024-07-11 DALI: 2025-04-17 Gestational Age (Current US) Current US: 10w 5d DALI: 2025-04-15 General Evaluation cardiac activity: Present Gestational sac: Present Yolk sac: Present pole: Present Biometry (Fetus A) HR: 165 bpm Concrete-rump length:37.8 mm 10w 5d 53% Findings: Anatomy: Sonographic evaluation reveals rodriguez intrauterine . cardiac activity present. growth appears normal. Too early in gestation to assess anatomy, placental position, or amniotic fluid volume. Gestational sac is round. Maternal Anatomy: The right ovary is surgically absent. There is a 3.7 x 2.2 x 3.4 cm complex cyst noted on the left ovary. Conclusions: Rodriguez IUP noted with cardiac activity. Size is consistent with LMP dating. Uterus and bilateral adnexa appear normal. Right oophorectomy noted. Complex cyst with thin internal septations noted on left ovary as above. Adequate blood flow noted to left ovary. Approved By: Sonja Elizondo MD Approved at: October 06, 2024 08:51 PM EDT Electronically Signed on Studycast JAMARCUS NEGRO 2024-09-22 Page 1 of 1 Imaging Center - , [facility] Génesis/Bacterial Vaginosis, ROSELIA (Aptima) (Not yet reviewed by provider) Interpretation:+yeast Performing Lab:[facility] [place] CLIA ID [id number], [address], [address], [place] [address], Director - Ben Landaverde MD Notes/Report: Bacterial Vaginosis Negative Negative The Aptima BV assay uses an algorithm for bacterial vaginosis based on (L. gasseri, L. crispatus and L. jensenii), Gardnerella vaginalis, and Atopobium vaginae. system that detects and discriminates RNA markers from the Lactobacillus species group The Aptima BV assay is a real time NAAT TMA assay developed for use on the automated Hampton detection of target organisms. Génesis species Positive Negative A The CV Assay is a real time TMA assay developed for use on the automated Hampton system that detects following Génesis species organisms (C. albicans, C. tropicalis, C. parapsilosis, C. dubliniensis), but the assay does not differentiate among C spp. Génesis glabrata Negative Negative CBC (NO DIFF) Reviewed date:09/22/2024 02:36:12 PM Interpretation:Normal Performing Lab: Notes/Report: WBC, CORRECTED 7.71 3.40-10.80 10*3/mm3 ERYTHROCYTES IN BLOOD BY AUTOMATED COUNT 4.40 3.77-5.28 10*6/mm3 HEMOGLOBIN (G/DL) IN BLOOD 13.5 12.0-15.9 g/dL HEMATOCRIT (%) BY AUTOMATED COUNT 40.0 34.0-46.6 % RBC MCV (FL) BY AUTOMATED COUNT 90.9 79.0-97.0 fL RBC MCH (PG) BY AUTOMATED COUNT 30.7 26.6-33.0 pg RBC MCHC (G/DL) BY AUTOMATED COUNT 33.8 31.5-35.7 g/dL RBC RDW (%) BY AUTOMATED COUNT 13.4 12.3-15.4 % RDW-SD 44.4 37.0-54.0 fl MEAN PLATELET VOLUME (FL) BY AUTOMATED COUNT 13.1 6.0-12.0 fL H PLATELETS BY AUTOMATED COUNT 183 140-450 10*3/mm3 Lab specimens received at a [facility].?See result details for the performing location information. URINE DRUG SCREEN Reviewed date:09/22/2024 11:32:04 AM Interpretation:Negative Performing Lab: Notes/Report: Cutoff For Drugs Screened: Amphetamines 500 ng/ml [...] test, particularly when unconfirmed results are used. THC URINE Negative Negative PHENCYCLIDINE SCREEN URINE Negative Negative COCAINE, URINE Negative Negative METHAMPHETAMINE Negative Negative OPIATES URINE Negative Negative AMPHETAMINE SCREEN URINE Negative Negative BENZODIAZEPINE SCREEN, URINE Negative Negative TRICYCLIC ANTIDEPRESSANTS SCREEN URINE Negative Negative METHADONE SCREEN, URINE Negative Negative BARBITURATE SCREEN, URINE Negative Negative OXYCODONE SCREEN URINE Negative Negative BUPRENORPHINE Negative Negative Lab specime ns received at a [facility].?See result details for the performing location information. URINE CULTURE Reviewed date:09/24/2024 08:54:55 AM Interpretation:lactobacillus - not clinically significant Performing Lab: Notes/Report: Colonization of the urinary tract without infection is common. Treatment is discouraged unless the patient is symptomatic, , or undergoing an invasive urologic procedure. URINE CULTURE 1371 LACTOBACILLUS SPECIES A Based on laboratory diagnosis criteria, these organisms are common urogenital commensal javan and have not been associated with urinary tract infections; clinical correlation is recommended. 25,000 CFU/mL Lactobacillus species Lab specimens received at a [facility].?See result details for the performing location information. ANTIBODY SCREEN Reviewed date:09/22/2024 02:00:14 PM Interpretation:Negative Performing Lab: Notes/Report: ANTIBODY SCREEN Negative Lab speci mens received at a [facility].?See result details for the performing location information. HEPATITIS C ANTIBODY Reviewed date:09/22/2024 03:14:39 PM Interpretation:Negative Performing Lab: Notes/Report: HEPATITIS C ANTIBODY Non-Reactive Non-Reacti La b specimens received at a [facility].?See result details for the performing location information. HIV-1/O/2 ANTIGEN/ANTIBODY, 4TH GENERATION Reviewed date:09/22/2024 03:14:39 PM Interpretation:Negative Performing Lab: Notes/Report: The HIV antibody/antigen combo assay is a qualitative assay for HIV that includes the p24 antigen as well as antibodies to HIV types 1 and 2. This test is intended to be used as a screening assay in the diagnosis of HIV infection in patients over the age of 2. HIV DUO Non-Reactive Non-Reacti Lab specimen s received at a [facility].?See result details for the performing location information. ABO/RH Reviewed date:09/22/2024 02:00:14 PM Interpretation:B+ Performing Lab: Notes/Report: ABO TYPE B RH TYPE Positive Lab specimens received at a [facility].?See result details for the performing location information. HEPATITIS B SURFACE ANTIGEN Reviewed date:09/22/2024 03:14:39 PM Interpretation:Negative Performing Lab: Notes/Report: HEPATITIS B SURFACE ANTIGEN Non-Reactive Non-Reacti Lab specimens received at a [facility].?See result details for the performing location information. RUBELLA ANTIBODY, IGG Reviewed date:09/24/2024 08:54:55 AM Interpretation:Immune Performing Lab: Notes/Report: Performed at: [address] [place] [id number] Tobacco Sweeper: Krishna Villalba PhD, Phone: [phone] RUBELLA ANTIBODIES, IGG (REF) 3.10 Immune >0. index Non-immune <0.90 Immune >0.99 Equivocal 0.90 - 0.99 Lab specimens received at a [facility].?See result details for the performing location information. TREPONEMA PALLIDUM (SYPHILIS ) SCREENING CASCADE Reviewed date:09/22/2024 03:14:39 PM Interpretation:Negative Performing Lab: Notes/Report: Reactive results will reflex RPR testing. TREPONEMAL AB TOTAL Non-Reactive Non-Reacti Lab specimens received at a [facility].?See result details for the performing location information. GLUCOSE, RANDOM Reviewed date:09/22/2024 03:14:39 PM Interpretation:Normal Performing Lab: Notes/Report: GLUCOSE RANDOM 99 65-99 mg/dL Lab speci mens received at a [facility].?See result details for the performing location information. CHLAMYDIA TRACHOMATIS, NEISS ERIA GONORRHOEAE, TRICHOMONAS VAGINALIS, PCR Reviewed date:09/24/2024 08:54:55 AM Interpretation:Negative Performing Lab: Notes/Report: Performed at: [address] [place] [id number] Tobacco Sweeper: Romi Ivory MD, Phone: [phone] CHLAMYDIA TRACHOMATIS, ROSELIA Negative Negative GONOCOCCUS BY ROSELIA Negative Negative TRICHOMONAS VAG Negative Negative Lab speci mens received at a [facility].?See result details for the performing location information. Non Invasive Testin g Reviewed date:10/06/2024 02:24:47 PM Interpretation:low fraction Performing Lab: Notes/Report: low fraction FENTANYL, URINE Reviewed date:09/22/2024 02:00:15 PM Interpretation:Negative Performing Lab: Notes/Report: Negative Threshold: Fentanyl 5 ng/mL The normal value for the drug tested is negative. This report includes final unconfirmed screening results to be used for medical treatment purposes only. Unconfirmed results must not be used for non-medical purposes such as employment or legal testing. Clinical consideration should be applied to any drug of abuse test, particularly when unconfirmed results are used. ? ? ? FENTANYL URINE Negative Negative Lab specim ens received at a [facility].?See result details for the performing location information. Reason For Referral No Information Medications Medication [...] Status W/U Status Risk Notes Problem Anxiety (15260691) Anxiety (F41.9) Active confirmed Problem Encounter for supervision of other normal in second trimester (Z34.82) Active confirmed Vital Signs Weight 186.4 lbs 10/28/2024 Encounters Encounter Location Date Provider Diagnosis [facility] [address] [facility] [address] [place] [address] 09/02/2024 Gina Roth with uncertain viability, single or unspecified fetus O36.80X0 [facility] [address] [facility] [address] [place] [address] 09/22/2024 Gina Roth Encounter for test, result positive Z32.01 [facility] [address] [address] [place] [address] 10/28/2024 Nemo James Encounter for supervision of other normal in second trimester Z34.82 ; 15 weeks gestation of Z3A.15 ; Vaginal discharge N89.8 ; Anxiety F41.9 and Acute nonintractable headache, unspecified headache type R51.9 [facility] [address] [facility] [address] [place] [address] 09/22/2024 Gina Roth with uncertain viability, single or unspecified fetus O36.80X0 Assessments Encounter Date Diagnosis (ICD Code) Assessment Notes Treatment Notes Treatment Clinical Notes Section Notes 09/22/2024 Encounter for test, result positive (ICD-10 - Z32.01) 09/22/2024 with uncertain viability, single or unspecified fetus (ICD-10 - O36.80X0) 09/02/2024 with uncertain viability, single or unspecified fetus (ICD-10 - O36.80X0) 10/28/2024 15 weeks gestation of (ICD-10 - Z3A.15) 10/28/2024 Encounter for supervision of other normal in second trimester (ICD-10 - Z34.82) 10/28/2024 Vaginal discharge (ICD-10 - N89.8) 10/28/2024 Anxiety (ICD-10 - F41.9) 10/28/2024 Acute nonintractable headache, unspecified headache type (ICD-10 - R51.9) Plan Of Treatment Pending Test Test Name Order Date Génesis/Bacterial Vaginosis, ROSELIA (Aptima ) 10/28/2024 Future Test Test Name Order Date *US OB Detailed Anatomy 10/28/2024 Next Appt Details Provider Name:Gina Roth, 11/19/2024 11:00:00 AM, [address], [place], [address], Provider Name:Gina Roth, 11/19/2024 11:15:00 AM, [address], [address], [place], [address], Provider Name:Gina Roth, 12/24/2024 11:30:00 AM, [address], [address], [place], [address], Provider Name:Gina Roth, 01/21/2025 01:45:00 PM, [address], [address], [place], [address], Provider Name:Gina Roth, 02/04/2025 11:15:00 AM, [address], [address], [place], [address], Provider Name:Gina Roth, 02/18/2025 01:00:00 PM, [address], [address], [place], [address], Provider Name:Nemo James, 03/03/2025 01:30:00 PM, [address], [address], [place], [address], Provider Name:Gina Roth, 03/18/2025 11:30:00 AM, [address], [address], [place], [address], Provider Name:Gina Roth, 03/25/2025 11:30:00 AM, [address], [address], [place], [address], Provider Name:Gina Gonzalez, 04/01/2025 11:30:00 AM, [address], [address], [place], [address], Provider Name:Gina Gonzalez, 04/08/2025 11:15:00 AM, [address], [address], [place], [address], Provider Name:Gina Roth, 04/15/2025 11:30:00 AM, [address], [place], [address], Insurance Providers Payer Name Payer Address Payer Phone Subscriber Number Group Number Insured Name Patient Relationship to Insured Coverage Start Date Coverage End Date [facility] [address] [place] [address] [phone] [id number] Jamarcus Negro Self - patient is the insured Medical (General) History Medical History History ICD Code Anxiety Depression ov cysts hashoimotos *Gestational diabetes mellit us in , Insulin controlled (Code also - Weeks of gestation Z3A) O24.414 Torsion of right ovary N83.511 Surgical History Surgery Date(Month/Year) 2020 Cholecystectomy 2012 Tonsilectomy 2004 Hospitalization History Reason Date(Month/Year) tonsils c/s
--- OUTSIDE RECORDS SUMMARY | 2024-10-29 14:58 | XMS_ITS | Clinical Summary ---
Author Organization [facility] Address [address] [place] [address] Care Team Providers Care Newspaper Photographer Name Role Phone Nayeli Copeland APRN Primary Care Provider [phone] Allergies No known active allergies Medications Vit-Fe Fumarate-FA ( 27-) 27-1 MG tablet tablet Take 1 tablet by mouth Daily. Active sertraline (ZOLOFT) 25 MG tablet Take 1 tablet by mouth Daily. 1 Active Lancets miscIndications: Gestational diabetes mellitus (GDM), antepartum, gestational diabetes method of control unspecified For use with glucose monitoring 6-8 times daily 200 each 5 1 Active Insulin Pen Needle 32G X 4 MM miscIndications: Gestational diabetes mellitus (GDM), antepartum, gestational diabetes method of control unspecified For use with insulin injections, daily 50 each 2 1 Active ferrous sulfate 325 (65 FE) MG tablet Take 1 tablet by mouth 2 (Two) Times a Day With Meals. 120 tablet 1 06/29/2020 9:24 AM EDT 1 Active docusate sodium 100 MG capsule Take 1 capsule by mouth 2 (Two) Times a Day As Needed for Constipation. 120 capsule 1 06/29/2020 9:24 AM EDT 1 Active ibuprofen (ADVIL,MOTRIN) 600 MG tablet Take 1 tablet by mouth Every 6 (Six) Hours. 60 tablet 1 06/29/2020 9:24 AM EDT 1 Active ibuprofen (ADVIL,MOTRIN) 600 MG tablet Take 1 tablet by mouth Every 6 (Six) Hours As Needed for pain. 30 tablet 09/21/2020 1:33 PM EDT 1 Active oxyCODONE-acetam inophen (PERCOCET) 5-325 MG per tablet Take 1 tablet by mouth Every 4-6 Hours As Needed for pain. 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 Gestational diabetes mellitu s in , insulin controlled 06/25/2020 Torsion of right ovary and ovarian pedicle 11/18 Encounters Date Type Department Care Team Description 09/22/2024 11:00 AM EDT Lab [facility] [address] [place] [address] examination or test, positive result 09/22/2024 Travel from Last 3 Months Family History Medical History Relation Name Comments Diabetes Father Hypertension Father Bipolar disorder Maternal Aunt Thyroid disease Maternal Aunt Anxiety disorder Maternal Grandfather Cancer Maternal Grandfather Diabetes Maternal Grandfather Heart attack Maternal Grandfather Kidney disease Maternal Grandfather Liver disease Maternal Grandfather Cancer Maternal Grandmother Hypertension Maternal Grandmother Anxiety disorder Mother Hyperlipidemia Mother Hypertension Mother Diabetes Paternal Grandfather Relation Name Status Comments Father Maternal Aunt Alive Maternal Grandfather Maternal Grandmother Mother Alive Paternal Grandfather Alive Social History Tobacco Use Types Packs/Day Years Used Date Smoking Tobacco: Never Smokeless Tobacco: Never Alcohol Use Standard Drinks/Week Comments Not Currently 0 (1 standard drink = 0.6 oz pur e alcohol) socially Salix Depression Scale Answer Date Recorded Salix Depression Scale Total 6 06/27/2020 The thought [...] on file Sexual Orientation Not on file Last Filed Vital Signs Vital Sign Reading Time Taken Comments Blood Pressure 102/61 06/29/2020 8:00 AM EDT Pulse 88 06/29/2020 8:00 AM EDT Temperature 36.7 C (98 F) 06/29/2020 8:00 AM EDT Respiratory Rate 16 06/29/2020 8:00 AM EDT Oxygen Saturation 96% 06/27/2020 2:05 AM EDT Inhaled Oxygen Concentration - - Weight 91.2 kg (201 lb) 06/25/2020 11:05 AM EDT Height 170.2 cm (5' 7 ) 06/25/2020 11:05 AM EDT Body Mass Index 31.48 06/25/2020 11:05 AM EDT Plan of Treatment Health Maintenance Due Date Last Done Comments Annual Gynecologic Pelvic an d Breast Exam 1991 TDAP/TD VACCINES (2 - Tdap) 10/14/2012 10/14/2002 ANNUAL PHYSICAL 09/25/2019 COVID-19 Vaccine (2023-2 5 season) 2023 11/25/2020, 10/27/2020 INFLUENZA VACCINE 12/10/2024 01/23/2023, 01/09/2022, 04/25/2021 HEPATITIS C SCREENING Completed 09/22/2024 , 11/27/2019 Pneumococcal Vaccine 0-49 Aged Out No longer eligible based on patient's age to complete this topic Procedures Procedure Name Priority Date/Time Associated Diagnosis Comments ANTIBODY SCREEN Routine 09/22/2024 10:46 AM EDT examination or test, positive result ABO/RH Routine 09/22/2024 10:46 AM EDT examination or test, positive result FENTANYL, URINE Routine 09/22/2024 10:46 AM EDT examination or test, positive result TREPONEMA PALLIDUM AB W/REFLEX RPR Routine 09/22/2024 [...] AM EDT examination or test, positive result from Last 3 Months Results * Treponema pallidum AB w/Reflex RPR (09/22/2024 10:46 AM EDT) Treponemal AB Total Non-Reacti ve Non-React consuelo 09/22/2024 2:51 PM EDT [facility] Blood Venipuncture / Unknown 09/22/2024 10:46 AM EDT 09/22/2024 10:46 AM EDT Narrative [facility] - 09/22/2024 2:51 PM EDT Reactive results will reflex RPR testing. us Gina Roth MD LAB BLOOD ORDERABLES Final Res ult Performing Organization Address City/[facility]/ZIP Co de Phone Number [facility]
[address] [place] [address], * Lab Collection Processing (09/22/2024 10:46 AM EDT) Blood Venipuncture / Unknown 09/22/2024 10:46 AM EDT 09/22/2024 10:46 AM EDT us Gina Roth MD LAB BLOOD ORDERABLES Final Res ult [facility]
[address] [place] [address], * HIV-1 / O / 2 Ag / Antibody 4th Generation (09/22/2024 10:46 AM EDT) HIV DUO Non-Reacti ve Non-Reacti ve 09/22/2024 2:51 PM EDT [facility] Blood Venipuncture / Unknown 09/22/2024 10:46 AM EDT 09/22/2024 10:46 AM EDT Narrative [facility] - 09/22/2024 2:51 PM EDT The HIV antibody/antigen combo assay is a qualitative assay for HIV that includes the p24 antigen as well as antibodies to HIV types 1 and 2. This test is intended to be used as a screening assay in the diagnosis of HIV infection in patients over the age of 2. Gina Roth MD LAB BLOOD ORDERABLES Final Res ult [facility]
[address] [place] [address], * Chlamydia trachomatis, Neisseria gonorrhoeae, Trichomonas vaginalis, PCR - Urine, Urine, Clean Catch (09/22/2024 10:46 AM EDT) Chlamydia trachomatis, ROSELIA Negative Negative 09/24/2024 6:09 AM EDT [facility] Gonococcus by ROSELIA Negative Negative 09/24/2024 6:09 AM EDT [facility] Trichomonas vaginosis Negative Negative 09/24/2024 6:09 AM EDT [facility] Urine Urine specimen obtained by clean catch procedure / Unknown Collection / Unknown 09/22/2024 10:46 AM EDT 09/22/2024 10:46 AM EDT [facility] - 09/24/2024 6:09 AM EDT Performed at: [address] [place] [address] [id number] Head Of Cytogenetics: Romi Ivory MD, Phone: [phone] Gina Roth MD MICROBIOLOGY - GENERAL ORDERAB LES Final Result [facility] [address] [place] [address], [place] [phone] * Hepatitis C Antibody (09/22/2024 10:46 AM EDT) Hepatitis C Ab Non-Reacti ve Non-Reacti ve 09/22/2024 2:51 PM EDT [facility] Blood Venipuncture / Unknown 09/22/2024 10:46 AM EDT 09/22/2024 10:46 AM EDT us Gina Roth MD LAB BLOOD ORDERABLES Final Res ult [facility]
[address] [place] [address], [place] [phone] * Urine Drug Screen - Urine, Clean Catch (09/22/2024 10:46 AM EDT) THC, Screen, Urine Negative Negative 2024 11:14 AM EDT [facility] Phencyclidine (PCP), Urine Negative Negative 09/22/2024 11:14 AM EDT [facility] Cocaine Screen, Urine Negative Negative 09/22/2024 11:14 AM EDT [facility] Methamphetamine, Ur Negative Negative 09/22 11:14 AM EDT [facility] Opiate Screen Negative Negative 09/22/2024 11:14 AM EDT [facility] Amphetamine Screen, Urine Negative Negative 09/22/2024 11:14 AM EDT [facility] Benzodiazepine Screen, Urine Negative Negative 09/22/2024 11:14 AM EDT [facility] Tricyclic Antidepressants Screen Negative Negative 09/22/2024 11:14 AM EDT [facility] Methadone Screen, Urine Negative Negative 09/22/2024 11:14 AM EDT [facility] Barbiturates Screen, Urine Negative Negative 09/22/2024 11:14 AM EDT [facility] Oxycodone Screen, Urine Negative Negative 09/22/2024 11:14 AM EDT [facility] Buprenorphine, Screen, Urine Negative Negative 09/22/2024 11:14 AM [facility] Urine Urine specimen obtained by clean catch procedure / Unknown Collection / Unknown 09/22/2024 10:46 AM EDT 09/22/2024 10:46 AM EDT Narrative [facility] - 09/22/2024 11:14 AM EDT Cutoff [...] Gina Roth MD URINE ORDERABLES Final Result [facility]
[address] [place] [address], * ABO / Rh (09/22/2024 10:46 AM EDT) ABO Type B 09/22/2024 11:23 AM EDT [facility] RH type Positive 09/22/2024 11:23 AM EDT [facility] Blood Venipuncture / Unknown 09/22/2024 10:46 AM EDT 09/22/2024 10:46 AM EDT Gina Roth MD BLOOD BANK TEST ORDERABLES Fin al Result [facility]
[address] [place] [address], * Fentanyl, Urine - Urine, Clean Catch (09/22/2024 10:46 AM EDT) Fentanyl, Urine Negative Negative 09/22/2024 11:33 AM EDT [facility] Urine Urine specimen obtained by clean catch procedure / Unknown Collection / Unknown 09/22/2024 10:46 AM EDT 09/22/2024 10:46 AM EDT [facility] - 09/22/2024 11:33 AM EDT Negative [...] Gina Roth MD URINE ORDERABLES Final Result [facility]
[address] [place] [address], * Rubella Antibody, IgG (09/22/2024 10:46 AM EDT) Rubella Antibodies, IgG 3.10 Immune >0.99 index 09/23/2024 6:09 AM EDT [facility] Comment: Non-immune <0.90 Equivocal 0.90 - 0.99 Immune >0.99 Blood Venipuncture / Unknown 09/22/2024 10:46 AM EDT 09/22/2024 10:46 AM EDT [facility] - 09/23/2024 6:09 AM EDT Performed at: [address] [place] [id number] Head Of Cytogenetics: Krishna Villalba PhD, Phone: [phone] Gina Roth MD LAB BLOOD ORDERABLES Final Res ult [facility] [address] [place] [id number], * Hepatitis B Surface Antigen (09/22/2024 10:46 AM EDT) Hepatitis B Surface Ag Non-Reacti ve Non-Reacti ve 09/22/2024 2:43 PM EDT [facility] Blood Venipuncture / Unknown 09/22/2024 10:46 AM EDT 09/22/2024 10:46 AM EDT us Gina Roth MD LAB BLOOD ORDERABLES Final Res ult [facility]
[address] [place] [address], * (ABNORMAL) CBC (No Diff) (09/22/2024 10:46 AM EDT) WBC 7.71 3.40 - 10.80 10*3/mm3 09/22/2024 2:19 PM EDT [facility] RBC 4.40 3.77 - 5.28 10*6/mm3 09/22/2024 2:19 PM EDT [facility] Hemoglobin 13.5 12.0 - 15.9 g/dL 09/22/2024 2:19 PM EDT [facility] Hematocrit 40.0 34.0 - 46.6 % 09/22/2024 2:19 PM EDT [facility] MCV 90.9 79.0 - 97.0 fL 09/22/2024 2:19 PM EDT [facility] MCH 30.7 26.6 - 33.0 pg 09/22/2024 2:19 PM EDT [facility] MCHC 33.8 31.5 - 35.7 g/dL 09/22/2024 2:19 PM EDT [facility] RDW 13.4 12.3 - 15.4 % 09/22/2024 2:19 PM EDT [facility] RDW-SD 44.4 37.0 - 54.0 fl 09/22/2024 2:19 PM EDT [facility] MPV 13.1(H) 6.0 - 12.0 fL 09/22/2024 2:19 PM EDT [facility] Platelets 183 140 - 450 10*3/mm3 09/22/2024 2:19 PM EDT [facility] Blood Venipuncture / Unknown 09/22/2024 10:46 AM EDT 09/22/2024 10:46 AM EDT us Gina Roth MD LAB BLOOD ORDERABLES Final Res ult [facility]
[address] [place] [address], * Antibody Screen (09/22/2024 10:46 AM EDT) Pathologist [facility] Antibody Screen Negative 09/22/2024 11:39 AM EDT [facility] Blood Venipuncture / Unknown 09/22/2024 10:46 AM EDT 09/22/2024 10:46 AM EDT us Gina Roth MD BLOOD BANK TEST ORDERABLES Fin al Result Performing Organization Address [facility]/ZIP Co de Phone Number [facility]
[address] [place] [address], [place] [phone] * (ABNORMAL) Urine Culture - Urine, Urine, Clean Catch (09/22/2024 10:46 AM EDT) [facility] Urine Culture 25,000 CFU/mL Lactobacillus species(A) SOLA 09/23/2024 1:38 PM EDT [facility] Comment: Based on laboratory diagnosis criteria, these organisms are common urogenital commensal javan and have not been associated with urinary tract infections; clinical correlation is recommended. Urine Urine specimen obtained by clean catch procedure / Unknown Collection / Unknown 09/22/2024 10:46 AM EDT 09/22/2024 10:46 AM EDT Narrative [facility] - 09/23/2024 1:38 PM EDT Colonization of the urinary tract without infection is common. Treatment is discouraged unless the patient is symptomatic, , or undergoing an invasive urologic procedure. us Gina Roth MD MICROBIOLOGY - GENERAL ORDERAB LES Final Result Performing Organization Address City/[facility]/ZIP Co de Phone Number [facility]
[address] [place] [address], [place] [phone] * Glucose, Random (09/22/2024 10:46 AM EDT) Glucose 99 65 - 99 mg/dL 09/22/2024 2:59 PM EDT [facility] Blood Venipuncture / Unknown 09/22/2024 10:46 AM EDT 09/22/2024 10:46 AM EDT Gnia Roth MD LAB BLOOD ORDERABLES Final Res ult Performing Organization Address City/[facility]/ZIP Co de Phone Number [facility]
[address] [place] [address], [place] [phone] from Last [address] [place] [address] Advance Directives * CPR (Attempt to Resuscitate) (Latest Code Status on File) Date Activated Date Inactivated Comments 06/27/2020 5:25 AM 06/29/2020 1:12 PM Question Answer Comments Code Status (Patient has no pulse and is not breathing): CPR (Attempt to Resuscitate) Medical Interventions (Patie nt has pulse or is breathing): Full * CPR (Attempt to Resuscitate) Date Activated Date Inactivated Comments 06/25/2020 11:07 AM 06/27/2020 5:25 AM Question Answer Comments Code Status (Patient has no pulse and is not breathing): CPR (Attempt to Resuscitate) Medical Interventions (Patie nt has pulse or is breathing): Full * CPR (Attempt to Resuscitate) Date Activated Date Inactivated Comments 11/19/2019 4:41 PM 11/20/2019 1:26 PM Question Answer Comments Code Status (Patient has no pulse and is not breathing): CPR (Attempt to Resuscitate) Medical Interventions (Patie nt has pulse or is breathing): Full Care Teams Newspaper Photographer Relationship Specialty Start Date End Date Nayeli Copeland APRN [address] [place] [address] PCP - General Nurse Practitioner 05/26/20
[2024-10-29 17:03] LABS: Glucose 1 Hour 119 mg/dL (74-100); Glucose,Fasting 119 mg/dl (74-100)
[2024-10-29 18:02] LABS: Free T4 (Free Thyroxine) 0.66 ng/dl (0.78-2.19)
[2024-10-29 18:15] LABS: Thyroid Stimulating Hormone 2.37 uIU/mL (0.465-4.68)
== END 2024-10-29 23:59 | disposition home or self-care (01) ==
LOC: LAB 14:55
PROVIDERS: PCP Nurse Practitioner Family; Visit Provider Student in an Organized Health Care Education/Training Program
DX: E06.3 Autoimmune thyroiditis (principal); Z86.32 Personal history of gestational diabetes
CPT/HCPCS: 36415; 82951; 84439; 84443

== ENCOUNTER 2024-11-04 09:52 | Outpatient (CLI) | payer OTHER, SELFPAY ==
--- OUTSIDE RECORDS SUMMARY | 2024-09-22 11:00 | XMS_ITS | Encounter Summary ---
[facility] Address [address] [place] [id number] Care Team Providers Care Prenatal Teacher Name Role Phone Nayeli Copeland APRN Primary Care Provider [phone] Encounter Details Date Type Department Care Team (Late st Contact Info) Description 09/22/2024 11:00 AM EDT Lab [facility] [address] [place] [phone] examination or test, positive result Social History Tobacco Use Types Packs/Day Years Used Date Smoking Tobacco: Never Smokeless Tobacco: Never Alcohol Use Standard Drinks/Week Comments Not Currently 0 (1 standard drink = 0.6 oz pur e alcohol) socially Madison Depression Scale Answer Date Recorded Madison Depression Scale Total 6 06/27/2020 The thought [...] Urine Negative Negative 09/22/2024 11:33 AM EDT [facility] Urine Urine specimen obtained by clean catch procedure / Unknown Collection / Unknown 09/22/2024 10:46 AM EDT 09/22/2024 10:46 AM EDT Narrative [facility] - 09/22/2024 11:33 AM [...] Gina Roth MD URINE ORDERABLES Final Result [facility]
[address] [place] [address], * (ABNORMAL) Urine Culture - Urine, Urine, Clean Catch (09/22/2024 10:46 AM EDT) Urine Culture 25,000 CFU/mL Lactobacillus species(A) SOLA 09/23/2024 1:38 PM EDT [facility] Comment: Based on laboratory diagnosis criteria, these organisms are common urogenital commensal javan and have not been associated with urinary tract infections; clinical correlation is recommended. Urine Urine specimen obtained by clean catch procedure / Unknown Collection / Unknown 09/22/2024 10:46 AM EDT 09/22/2024 10:46 AM EDT [facility] - 09/23/2024 1:38 PM EDT Colonization of the urinary tract without infection is common. Treatment is discouraged unless the patient is symptomatic, , or undergoing an invasive urologic procedure. us Gina Roth MD MICROBIOLOGY - GENERAL ORDERAB LES Final Result Performing Organization Address [facility]/ZIP Co de Phone Number [facility]
[address] [place] [address], * Treponema pallidum AB w/Reflex RPR (09/22/2024 10:46 AM EDT) Treponemal AB Total Non-Reacti ve Non-React consuelo 09/22/2024 2:51 PM EDT [facility] Blood Venipuncture / Unknown 09/22/2024 10:46 AM EDT 09/22/2024 10:46 AM EDT [facility] - 09/22/2024 2:51 PM EDT Reactive results will reflex RPR testing. us Gina Roth MD LAB BLOOD ORDERABLES Final Res ult Performing Organization Address [facility]/ZIP Co de Phone Number [facility]
[address] [place] [address], * Rubella Antibody, IgG (09/22/2024 10:46 AM EDT) Rubella Antibodies, IgG 3.10 Immune >0.99 index 09/23/2024 6:09 AM EDT [facility] Comment: Non-immune <0.90 Equivocal 0.90 - 0.99 Immune >0.99 Blood Venipuncture / Unknown 09/22/2024 10:46 AM EDT 09/22/2024 10:46 AM EDT Narrative [facility] - 09/23/2024 6:09 AM EDT Performed at: [address] [place] [id number] [employer]: Krishna Villalba PhD, Phone: [phone] us Gina Roth MD LAB BLOOD ORDERABLES Final Res ult [address] [address], * HIV-1 / O / 2 Ag / Antibody 4th Generation (09/22/2024 10:46 AM EDT) HIV DUO Non-Reacti ve Non-Reacti ve 09/22/2024 2:51 PM EDT [facility] Blood Venipuncture / Unknown 09/22/2024 10:46 AM EDT 09/22/2024 10:46 AM EDT Narrative [facility] - 09/22/2024 2:51 PM EDT The [...] MD LAB BLOOD ORDERABLES Final Res ult [facility]
[address] [place] [address], * Hepatitis C Antibody (09/22/2024 10:46 AM EDT) Hepatitis C Ab Non-Reacti ve Non-Reacti ve 09/22/2024 2:51 PM EDT [facility] Blood Venipuncture / Unknown 09/22/2024 10:46 AM EDT 09/22/2024 10:46 AM EDT us Gina Roth MD LAB BLOOD ORDERABLES Final Res ult Performing Organization Address City/[facility]/ZIP Co de Phone Number [facility]
[address] [place] [address], * Hepatitis B Surface Antigen (09/22/2024 10:46 AM EDT) Pathologist [facility] Hepatitis B Surface Ag Non-Reacti ve Non-Reacti ve 09/22/2024 2:43 PM EDT [facility] Blood Venipuncture / Unknown 09/22/2024 10:46 AM EDT 09/22/2024 10:46 AM EDT us Gina Roth MD LAB BLOOD ORDERABLES Final Res ult Performing Organization Address [facility] Co de Phone Number [facility]
[address] [place] [address], [place] [phone] * Glucose, Random (09/22/2024 10:46 AM EDT) [facility] Glucose 99 65 - 99 mg/dL 09/22/2024 2:59 PM EDT [facility] Blood Venipuncture / Unknown 09/22/2024 10:46 AM EDT 09/22/2024 10:46 AM EDT us Gina Roth MD LAB BLOOD ORDERABLES Final Res ult Performing Organization Address [facility] Co de Phone Number [facility]
[address] [place] [address], [place] [phone] * Urine Drug Screen - Urine, Clean Catch (09/22/2024 10:46 AM EDT) Pathologist [facility] THC, Screen, Urine Negative Negative 2024 11:14 AM EDT [facility] Phencyclidine (PCP), Urine Negative Negative 09/22/2024 11:14 AM EDT [facility] Cocaine Screen, Urine Negative Negative 09/22/2024 11:14 AM T [facility] Methamphetamine, Ur Negative Negative 09/22 11:14 AM EDT [facility] Opiate Screen Negative Negative 09/22/2024 11:14 AM EDT [facility] Amphetamine Screen, Urine Negative Negative 09/22/2024 11:14 AM [facility] Benzodiazepine Screen, Urine Negative Negative 09/22/2024 11:14 AM [facility] Tricyclic Antidepressants Screen Negative Negative 09/22/2024 11:14 AM [facility] Methadone Screen, Urine Negative Negative 09/22/2024 11:14 AM [facility] Barbiturates Screen, Urine Negative Negative 09/22/2024 11:14 AM EDT [facility] Oxycodone Screen, Urine Negative Negative 09/22/2024 11:14 AM [facility] Buprenorphine, Screen, Urine Negative Negative 09/22/2024 11:14 AM [facility] Urine Urine specimen obtained by clean catch procedure / Unknown Collection / Unknown 09/22/2024 10:46 AM EDT 09/22/2024 10:46 AM EDT [facility] - 09/22/2024 11:14 AM EDT Cutoff [...] Gina Roth MD URINE ORDERABLES Final Result [facility]
[address] [place] [address], [place] [phone] * Chlamydia trachomatis, Neisseria gonorrhoeae, Trichomonas vaginalis, [...] - 09/24/2024 6:09 AM EDT Performed at: [address] [place] [id number] [employer]: Romi Ivory MD, Phone: [phone] Gina Roth MD MICROBIOLOGY - GENERAL ORDERAB LES Final Result Performing Organization Address City/[facility]/ZIP Co de Phone Number [facility] [address] [place] [address], * Antibody Screen (09/22/2024 10:46 AM EDT) Antibody Screen Negative 09/22/2024 11:39 AM EDT [facility] Blood Venipuncture / Unknown 09/22/2024 10:46 AM EDT 09/22/2024 10:46 AM EDT Gina Roth MD BLOOD BANK TEST ORDERABLES Fin al Result [facility]
[address] [place] [id number], * ABO / Rh (09/22/2024 10:46 AM EDT) Pathologist [facility] ABO Type B 09/22/2024 11:23 AM EDT [facility] RH type Positive 09/22/2024 11:23 AM EDT [facility] Blood Venipuncture / Unknown 09/22/2024 10:46 AM EDT 09/22/2024 10:46 AM EDT Gina Roth MD BLOOD BANK TEST ORDERABLES Fin al Result [facility]
[address] [place] [address], * (ABNORMAL) CBC (No Diff) (09/22/2024 10:46 AM EDT) [facility] WBC 7.71 3.40 - 10.80 10*3/mm3 09/22/2024 2:19 PM EDT [facility] RBC 4.40 3.77 - 5.28 10*6/mm3 09/22/2024 2:19 PM EDT [facility] Hemoglobin 13.5 12.0 - 15.9 g/dL 09/22/2024 2:19 PM EDT [facility] Hematocrit 40.0 34.0 - 46.6 % 09/22/2024 2:19 PM EDT [facility] MCV 90.9 79.0 - 97.0 fL 09/22/2024 2:19 PM EDT [facility] MCH 30.7 26.6 - 33.0 pg 09/22/2024 2:19 PM EDT [facility] MCHC 33.8 31.5 - 35.7 g/dL 09/22/2024 2:19 PM EDT [facility] RDW 13.4 12.3 - 15.4 % 09/22/2024 2:19 PM EDT [facility] RDW-SD 44.4 37.0 - 54.0 fl 09/22/2024 2:19 PM EDT [facility] MPV 13.1(H) 6.0 - 12.0 fL 09/22/2024 2:19 PM EDT [facility] Platelets 183 140 - 450 10*3/mm3 09/22/2024 2:19 PM EDT [facility] Blood Venipuncture / Unknown 09/22/2024 10:46 AM EDT 09/22/2024 10:46 AM EDT Gina Roth MD LAB BLOOD ORDERABLES Final Res ult Performing Organization Address City/[facility]/ZIP Co de Phone Number [facility]
[address] [place] [address], * Lab Collection Processing (09/22/2024 10:46 AM EDT) Blood Venipuncture / Unknown 09/22/2024 10:46 AM EDT 09/22/2024 10:46 AM EDT Gina Roth MD LAB BLOOD ORDERABLES Final Res ult Performing Organization Address City/[facility]/ZIP Co de Phone Number [facility]
[address] [place] [address], documented in this encounter Visit Diagnoses Diagnosis examination or test, positive result documented in this encounter Care Teams Prenatal Teacher Relationship Specialty Start Date End Date Nayeli Copeland APRN [address] [place] [address] PCP - General Nurse Practitioner 05/26/20 documented as of this encounter
--- OUTSIDE RECORDS SUMMARY | 2024-10-21 09:15 | XMS_ITS ---
Author Organization [facility] Address [address] [facility] [address] [place] [address] Care Team Providers Care Shank Faker Name Role Phone Gina Roth Unavailable [phone] Genoveva Greene Unavailable [phone] REASON FOR VISIT 16 Social History Sex Assigned At : Social History Observation Description Sex Assigned At Female Encounters Encounter Location Date Provider Diagnosis [facility] [address] [place] [address] 10/21/2024 Genoveva Greene Plan Of Treatment Next Appt Details Provider Name:Gina Roth, 11/19/2024 11:00:00 AM, [address], [address], [place], [address], Provider Name:Gina Roth, 11/19/2024 11:15:00 AM, [address], [address], [place], [address], Provider Name:Gina Roth, 12/24/2024 11:30:00 AM, [address], [address], [place], [address], Provider Name:Gina Roth, 01/21/2025 01:45:00 PM, [address], [place], [address], Provider Name:Gina Roth, 02/04/2025 11:15:00 AM, [address], [address], [place], [address], Provider Name:Gina Roth, 02/18/2025 01:00:00 PM, [address], [address], [place], [address], Provider Name:Nemo James, 03/03/2025 01:30:00 PM, [address], [address], [place], [address], Provider Name:Gina Gonzalez, 03/18/2025 11:30:00 AM, [address], [address], [place], [address], Provider Name:Gina Gonzalez, 03/25/2025 11:30:00 AM, [address], [address], [place], [address], Provider Name:Gina Gonzalez, 04/01/2025 11:30:00 AM, [address], [address], [place], [address], Provider Name:Gina Gonzalez, 04/08/2025 11:15:00 AM, [address], [address], [place], [address], Provider Name:Gina Roth, 04/15/2025 11:30:00 AM, [address], [address], [place], [address], Progress Notes * Destiny NEGRO NDOB:1990 (34 yo F)Acc No.[id number]:10/21/2024 Progress Note Patient: Angy Destiny werner Provider: Fabricio Greene APRN :1990 A ge:34 Y S ex:Female Date:10/21/2024 Address:[address] [place] [address] Subjective: * Chief Complaints: * 1 6 * Electronic signature of Georgi Greene NP on 11/04/2024 at 09:56 AM EDT Sign off status: Pending Visit Status: R /S (Rescheduled) * Provider: Fabricio Greene APRN Date: 0 10/21/2024 Generated for Fidel Eastman/Jennifer on: 0 11/04/2024 09:56 AM EDT
--- OUTSIDE RECORDS SUMMARY | 2024-10-28 09:15 | XMS_ITS ---
Author Organization [facility] [place] Address [address] [facility] [address] [place] [address] Care Team Providers Care Charge Entry Name Role Phone Gina Roth Unavailable [phone] Nemo James Unavailable [phone] Results Component Value Reference Range Flag Notes Génesis/Bacterial Vaginosis, ROSELIA (Aptima) Reviewed date:10/29/2024 05:03:39 PM Interpretation:+yeast Performing Lab:[facility] - [place] CLIA ID [id number], [address] [facility], [address], [place] [address], Director - Ben Landaverde MD Notes/Report: Bacterial Vaginosis Negative Negative The Aptima BV assay is a real time NAAT TMA assay developed for use on the automated [place] system that detects and discriminates RNA markers from the Lactobacillus species group (L. gasseri, L. crispatus and L. jensenii), Gardnerella vaginalis, and Atopobium vaginae. The Aptima BV assay uses an algorithm for bacterial vaginosis based on detection of target organisms. Génesis species Positive Negative A The CV Assay is a real time TMA assay developed for use on the automated [place] system that detects following Génesis species organisms [...] Status W/U Status Risk Notes Problem Anxiety (38009389) Anxiety (F41.9) Active confirmed Problem Encounter for supervision of other normal in second trimester (Z34.82) Active confirmed Vital Signs Weight 186.4 lbs 10/28/2024 Encounters Encounter Location Date Provider Diagnosis [facility]- [address] [facility] [address] [place] [address] 10/28/2024 Nemo James Encounter for supervision of [...] day 27-0.8 MG Tablet 1 tablet Orally Future Test Test Name Order Date *US OB Detailed Anatomy 10/28/2024 Next Appt Details Follow Up: 4 Weeks, Reason: Provider Name:Gina Roth, 11/19/2024 11:00:00 AM, [address], [facility] [address], [place], [address], Provider Name:Gina Roth, 11/19/2024 11:15:00 AM, [address], [address], [place], [address], Provider Name:Gina Gonzalez, 12/24/2024 11:30:00 AM, [address], [address], [place], [address], Provider Name:Gina Gonzalez, 01/21/2025 01:45:00 PM, [address], [address], [place], [address], Provider Name:Gina Gonzalez, 02/04/2025 11:15:00 AM, [address], [address], [place], [address], Provider Name:Gina Gonzalez, 02/18/2025 01:00:00 PM, [address], [address], [place], [address], Provider Name:Nemo Doradopato, 03/03/2025 01:30:00 PM, [address], [address], [place], [address], Provider Name:Gina Gonzalez, 03/18/2025 11:30:00 AM, [address], [address], [place], [address], Provider Name:Gina Gonzalez, 03/25/2025 11:30:00 AM, [address], [address], [place], [address], Provider Name:Gina Gonzalez, 04/01/2025 11:30:00 AM, [address], [address], [place], [address], Provider Name:Gian Gonzalez, 04/08/2025 11:15:00 AM, [address], [address], [place], [address], Provider Name:Gina Roth, 04/15/2025 11:30:00 AM, [address], [facility] [address], [place], [address], History and Physical Notes * Examination Category Sub-Category Detail Notes Category Not es Rn Acls Rn Acls Status ., Rn Acls pr esent during physical exam. Name: Title: [facility] DIRECTOR Progress Notes * eDstiny NEGRO NDOB:1990 (34 yo F)Acc No.[id number]:10/28/2024 Progress Note Patient: Destiny Aguilar Provider: Indio James MD :1990 A ge:34 Y S ex:Female Date:10/28/2024 Address:[address] [place] [address] Subjective: * Chief Complaints: * 1 6 weeks * Medical History: Anxiety Depression Ov cysts Hashoimotos *Gestational diabetes mellitus in , Insulin controlled (Code also - Weeks of gestation Z3A) Torsion of right ovary Medical History Verified * Ground Host/Hostess History: P ap Smear History: D ate [...] Negative - L ab:URINE CULTURE (Order Date - 09/22/2024) (Collection Date & [...] Result: low fraction Notes: low fraction, needs redrawWolfe Sydney BEHAVIOR[facility] HEALTH DIRECTOR 10/06/2024 02:24:45 PM EDT > Pt aware and does not want repeat. * Examination: C haperone: Rn Acls Status . , Rn Acls present during physical exam. Name: Title: DOUG [...] 4 Weeks Billing Information: * Visit Code: 91145 Office/Outpatient visit, est patient. 73180 Office/Outpatient visit, est patient. * Procedure Codes: 0502F HEDIS SUBSEQUENT CARE. * Sign off status: Completed Visit Status: C HK (Check Out) true * Provider: Indio James MD Date: 0 10/28/2024 Generated for Fidel fontana/Reinier/eTjuliethsmitting on: 0 11/04/2024 09:57 AM EDT
--- OUTSIDE RECORDS SUMMARY | 2024-10-29 13:01 | XMS_ITS ---
Author Organization [facility] Address [address] [facility] [[email or web address]] [address] [place] [address] Care Team Providers Care Radiology Practitioner Assistant Name Role Phone Gina Roth Unavailable [phone] Nemo James Unavailable [phone] REASON FOR VISIT diflucan sent Medications Medication SIG (Take, Route, Frequency, Duration) Notes Start Date End Date Status Fluconazole 150 MG Tablet 1 tablet Orally Now; Duration: 2 days May repeat in 24-48 hours if needed. 10/29/2024 Active Social History Sex Assigned At : Social History Observation Description Sex Assigned At Female Encounters Encounter Location Date Provider Diagnosis [facility] [address] [facility] [address] [place] [address] 10/29/2024 Nemo James Yeast infection B37.9 Assessments Encounter Date Diagnosis (ICD Code) Assessment Notes Treatment Notes Treatment Clinical Notes Section Notes 10/29/2024 Yeast infection (ICD-10 - B37.9) Plan Of Treatment Medication Medication Name Sig Start Date Stop Date Notes Fluconazole 150 MG Tablet 1 tablet Orall y Now; Duration: 2 days 10/29/2024 Next Appt Details Provider Name:Gina Roth, 11/19/2024 11:00:00 AM, [address], [place], [address], Provider Name:Gina Roth, 11/19/2024 11:15:00 AM, [address], [address], Provider Name:Gina Roth, 12/24/2024 11:30:00 AM, [address], [address], [place], [address], Provider Name:Gina Roth, 01/21/2025 01:45:00 PM, [address], [address], [place], [address], Provider Name:Gina Roth, 02/04/2025 11:15:00 AM, [address], [address], [place], [address], Provider Name:Gina Roth, 02/18/2025 01:00:00 PM, [address], [address], [place], [address], Provider Name:Nemo James, 03/03/2025 01:30:00 PM, [address], [address], [place], [address], Provider Name:Gina Roth, 03/18/2025 11:30:00 AM, [address], [address], [place], [address], Provider Name:Gina Roth, 03/25/2025 11:30:00 AM, [address], [address], [place], [address], Provider Name:Gina Roth, 04/01/2025 11:30:00 AM, [address], [address], [place], [address], Provider Name:Gina Gonzalez, 04/08/2025 11:15:00 AM, [address], [address], [place], [address], Provider Name:Gina Roth, 04/15/2025 11:30:00 AM, [address], [address], [place], [address], Progress Notes * Destiny NEGRO NDOB:1990 (34 yo F)Acc No.[id number]:10/29/2024 Patient: Destiny TEJADA N :1990 A ge:34 Y S ex:Female Address:[address] [place] [address], [place] [address] * Refills Start Fluconazole Tablet, 150 MG, Orally, 2, 1 tablet, Now, May repeat in 24-48 hours if needed., 2 days, Refills=1 Subjective: * Chief Complaints: * D iflucan sent Assessment: * Assessment: 1. Y east infection - B37.9 (Primary) Plan: * Treatment: * true * Date: Generated for Fidel fontana/Reinier/Jennifer on: 0 11/04/2024 09:57 AM EDT
--- OUTSIDE RECORDS SUMMARY | 2024-11-04 09:56 | XMS_ITS | Clinical Summary ---
Author Organization [facility] Address [address] [place] [address] Care Team Providers Care Reservation Agent Name Role Phone Nayeli Copeland APRN Primary Care Provider [phone] Allergies No known active allergies Medications Vit-Fe [...] Team Description 09/22/2024 11:00 AM EDT Lab [facility] [address] [place] [address] examination or test, positive result [...] = 0.6 oz pur e alcohol) socially [place] Depression Scale Answer Date Recorded [place] Depression Scale Total 6 06/27/2020 The thought [...] ve Non-React consuelo 09/22/2024 2:51 PM EDT [facility] Blood Venipuncture / Unknown 09/22/2024 10:46 AM EDT 09/22/2024 10:46 AM EDT Narrative [facility] - 09/22/2024 2:51 PM EDT Reactive results will reflex RPR testing. us Gina Roth MD LAB BLOOD ORDERABLES Final Res ult Performing Organization Address City/[facility]/ZIP Co de Phone Number [facility]
[address] [place] [address], * Lab Collection Processing (09/22/2024 10:46 AM EDT) Blood Venipuncture / Unknown 09/22/2024 10:46 AM EDT 09/22/2024 10:46 AM EDT us Gina Roth MD LAB BLOOD ORDERABLES Final Res ult [facility]
[address] [place] [address], * HIV-1 / O / 2 Ag / Antibody 4th Generation (09/22/2024 10:46 AM EDT) HIV DUO Non-Reacti ve Non-Reacti ve 09/22/2024 2:51 PM EDT [facility] Blood Venipuncture / Unknown 09/22/2024 10:46 AM EDT 09/22/2024 10:46 AM EDT Narrative [facility] - 09/22/2024 2:51 PM EDT The [...] MD LAB BLOOD ORDERABLES Final Res ult [facility]
[address] [place] [address], * Chlamydia trachomatis, Neisseria gonorrhoeae, Trichomonas vaginalis, [...] 10:46 AM EDT 09/22/2024 10:46 AM EDT [facility] - 09/24/2024 6:09 AM EDT Performed at: [address] [place] [address] [id number] Aircraft Engine Mechanic Overhaul: Romi Ivory MD, Phone: [phone] Gina Roth MD MICROBIOLOGY - GENERAL ORDERAB LES Final Result [facility] [address] [place] [address], [place] [phone] * Hepatitis C Antibody (09/22/2024 10:46 AM EDT) Hepatitis C Ab Non-Reacti ve Non-Reacti ve 09/22/2024 2:51 PM EDT [facility] Blood Venipuncture / Unknown 09/22/2024 10:46 AM EDT 09/22/2024 10:46 AM EDT us Gina Roth MD LAB BLOOD ORDERABLES Final Res ult [facility]
[address] [place] [address], [place] [phone] * Urine Drug Screen - Urine, Clean Catch (09/22/2024 10:46 AM EDT) THC, Screen, Urine Negative Negative 2024 11:14 AM EDT [facility] Phencyclidine (PCP), Urine Negative Negative 09/22/2024 11:14 AM EDT [facility] Cocaine Screen, Urine Negative Negative 09/22/2024 11:14 AM EDT [facility] Methamphetamine, Ur Negative Negative 09/22 11:14 AM EDT [facility] Opiate Screen Negative Negative 09/22/2024 11:14 AM EDT [facility] Amphetamine Screen, Urine Negative Negative 09/22/2024 11:14 AM EDT [facility] Benzodiazepine Screen, Urine Negative Negative 09/22/2024 11:14 AM EDT [facility] Tricyclic Antidepressants Screen Negative Negative 09/22/2024 11:14 AM EDT [facility] Methadone Screen, Urine Negative Negative 09/22/2024 11:14 AM EDT [facility] Barbiturates Screen, Urine Negative Negative 09/22/2024 11:14 AM EDT [facility] Oxycodone Screen, Urine Negative Negative 09/22/2024 11:14 AM EDT [facility] Buprenorphine, Screen, Urine Negative Negative 09/22/2024 11:14 AM [facility] Urine Urine specimen obtained by clean catch procedure / Unknown Collection / Unknown 09/22/2024 10:46 AM EDT 09/22/2024 10:46 AM EDT Narrative [facility] - 09/22/2024 11:14 AM EDT [...] Gina Roth MD URINE ORDERABLES Final Result [facility]
[address] [place] [address], * ABO / Rh (09/22/2024 10:46 AM EDT) ABO Type B 09/22/2024 11:23 AM EDT [facility] RH type Positive 09/22/2024 11:23 AM EDT [facility] Blood Venipuncture / Unknown 09/22/2024 10:46 AM EDT 09/22/2024 10:46 AM EDT Gina Roth MD BLOOD BANK TEST ORDERABLES Fin al Result [facility]
[address] [place] [address], * Fentanyl, Urine - Urine, Clean Catch (09/22/2024 10:46 AM EDT) Fentanyl, Urine Negative Negative 09/22/2024 11:33 AM EDT [facility] Urine Urine specimen obtained by clean catch procedure / Unknown Collection / Unknown 09/22/2024 10:46 AM EDT 09/22/2024 10:46 AM EDT [facility] - 09/22/2024 11:33 AM EDT Negative [...] Gina Roth MD URINE ORDERABLES Final Result [facility]
[address] [place] [address], * Rubella Antibody, IgG (09/22/2024 10:46 AM EDT) Rubella Antibodies, IgG 3.10 Immune >0.99 index 09/23/2024 6:09 AM EDT [facility] Comment: Non-immune <0.90 Equivocal 0.90 - 0.99 Immune >0.99 Blood Venipuncture / Unknown 09/22/2024 10:46 AM EDT 09/22/2024 10:46 AM EDT [facility] - 09/23/2024 6:09 AM EDT Performed at: [address] [place] [id number] Aircraft Engine Mechanic Overhaul: Krishna Villalba PhD, Phone: [phone] Gina Roth MD LAB BLOOD ORDERABLES Final Res ult [facility] [address] [place] [address], * Hepatitis B Surface Antigen (09/22/2024 10:46 AM EDT) Hepatitis B Surface Ag Non-Reacti ve Non-Reacti ve 09/22/2024 2:43 PM EDT [facility] Blood Venipuncture / Unknown 09/22/2024 10:46 AM EDT 09/22/2024 10:46 AM EDT us Gina Roth MD LAB BLOOD ORDERABLES Final Res ult [facility]
[address] [place] [address], * (ABNORMAL) CBC (No Diff) (09/22/2024 10:46 AM EDT) WBC 7.71 3.40 - 10.80 10*3/mm3 09/22/2024 2:19 PM EDT [facility] RBC 4.40 3.77 - 5.28 10*6/mm3 09/22/2024 2:19 PM EDT [facility] Hemoglobin 13.5 12.0 - 15.9 g/dL 09/22/2024 2:19 PM EDT [facility] Hematocrit 40.0 34.0 - 46.6 % 09/22/2024 2:19 PM EDT [facility] MCV 90.9 79.0 - 97.0 fL 09/22/2024 2:19 PM EDT [facility] MCH 30.7 26.6 - 33.0 pg 09/22/2024 2:19 PM EDT [facility] MCHC 33.8 31.5 - 35.7 g/dL 09/22/2024 2:19 PM EDT [facility] RDW 13.4 12.3 - 15.4 % 09/22/2024 2:19 PM EDT [facility] RDW-SD 44.4 37.0 - 54.0 fl 09/22/2024 2:19 PM EDT [facility] MPV 13.1(H) 6.0 - 12.0 fL 09/22/2024 2:19 PM EDT [facility] Platelets 183 140 - 450 10*3/mm3 09/22/2024 2:19 PM EDT [facility] Blood Venipuncture / Unknown 09/22/2024 10:46 AM EDT 09/22/2024 10:46 AM EDT us Gina Roth MD LAB BLOOD ORDERABLES Final Res ult [facility]
[address] [place] [address], * Antibody Screen (09/22/2024 10:46 AM EDT) Pathologist [facility] Antibody Screen Negative 09/22/2024 11:39 AM EDT [facility] Blood Venipuncture / Unknown 09/22/2024 10:46 AM EDT 09/22/2024 10:46 AM EDT us Gina Roth MD BLOOD BANK TEST ORDERABLES Fin al Result Performing Organization Address [facility]/ZIP Co de Phone Number [facility]
[address] [place] [address], [place] [phone] * (ABNORMAL) Urine Culture - Urine, Urine, Clean Catch (09/22/2024 10:46 AM EDT) [facility] Urine Culture 25,000 CFU/mL Lactobacillus species(A) SOLA 09/23/2024 1:38 PM EDT [facility] Comment: Based on laboratory diagnosis criteria, these organisms are common urogenital commensal javan and have not been associated with urinary tract infections; clinical correlation is recommended. Urine Urine specimen obtained by clean catch procedure / Unknown Collection / Unknown 09/22/2024 10:46 AM EDT 09/22/2024 10:46 AM EDT Narrative [facility] - 09/23/2024 1:38 PM EDT Colonization of the urinary tract without infection is common. Treatment is discouraged unless the patient is symptomatic, , or undergoing an invasive urologic procedure. us Gina Roth MD MICROBIOLOGY - GENERAL ORDERAB LES Final Result Performing Organization Address City/[facility]/ZIP Co de Phone Number [facility]
[address] [place] [address], [place] [phone] * Glucose, Random (09/22/2024 10:46 AM EDT) Glucose 99 65 - 99 mg/dL 09/22/2024 2:59 PM EDT [facility] Blood Venipuncture / Unknown 09/22/2024 10:46 AM EDT 09/22/2024 10:46 AM EDT Gina Roth MD LAB BLOOD ORDERABLES Final Res ult Performing Organization Address City/[facility]/ZIP Co de Phone Number [facility]
[address] [place] [address], [place] [phone] from Last [address] [place] [address] Advance Directives * CPR (Attempt to Resuscitate) [...] pulse or is breathing): Full Care Teams Reservation Agent Relationship Specialty Start Date End Date Nayeli Copeland APRN [address] [place] [address] PCP - General Nurse Practitioner 05/26/20
--- OUTSIDE RECORDS SUMMARY | 2024-11-04 09:56 | XMS_ITS | Encounter Summary ---
Author Organization [facility] Address [address] [place] [address] Care Team Providers Care Filter Press Pumper Name Role Phone Nayeli Copeland APRN Primary Care Provider [phone] Encounter Details Date Type Department Care Team (Latest Contact Info) Description 09/22/2024 Travel Social History Tobacco Use Types Packs/Day Years Used Date Smoking Tobacco: Never Smokeless Tobacco: Never Alcohol Use Standard Drinks/Week Comments Not Currently 0 (1 standard drink = 0.6 oz pur e alcohol) socially [place] Depression Scale Answer Date Recorded [place] Depression Scale Total 6 06/27/2020 The thought [...] on filedocumented in this encounter Care Teams Filter Press Pumper Relationship Specialty Start Date End Date Nayeli Copeland APRN [address] [place] [address] PCP - General Nurse Practitioner 05/26/20 documented as of this encounter
--- OUTSIDE RECORDS SUMMARY | 2024-11-04 09:57 | XMS_ITS | Patient Health Record ---
Author Organization [facility] Address [address] [place] [address] Care Team Providers Care Personal Property Appraiser Name Role Phone Gina Roth Unavailable [phone] Nemo James Unavailable [phone] Genoveva Greene Unavailable [phone] Allergies Allergen (clinical drug ingredient) Drug/Non Drug Allergy documented on EMR Reaction Allergy Type Onset Date Status MORPHINE SULFATE (MORPHINE SULFATE TABS) Unspecified Drug Allergy 11/05/2019 Active Results Component Value Reference Range Flag Notes Génesis/Bacterial Vaginosis, ROSELIA (Aptima) Reviewed date:10/29/2024 05:03:39 PM Interpretation:+yeast Performing Lab:Marcial GAGE [facility] - [place] CLIA ID [id number], [address], [address], [place] [address], Director - Ben Landaverde MD Notes/Report: Bacterial Vaginosis Negative Negative The Aptima BV assay uses an algorithm for bacterial vaginosis based on (L. gasseri, L. crispatus and L. jensenii), Gardnerella vaginalis, and Atopobium vaginae. system that detects and discriminates RNA markers from the Lactobacillus species group The Aptima BV assay is a real time NAAT TMA assay developed for use on the automated [place] detection of target organisms. Génesis species Positive Negative A The CV Assay is a real time TMA assay developed for use on the automated [place] system that detects following Génesis species organisms [...] 140-450 10*3/mm3 Lab specimens received at a [facility].?See result details for the performing location information. ANTIBODY SCREEN Reviewed date:09/22/2024 02:00:14 PM Interpretation:Negative Performing Lab: Notes/Report: ANTIBODY SCREEN Negative Lab speci mens received at a [facility].?See result details for the performing location information. HEPATITIS C ANTIBODY Reviewed date:09/22/2024 03:14:39 PM Interpretation:Negative Performing Lab: Notes/Report: HEPATITIS C ANTIBODY Non-Reactive Non-Reacti La b specimens received at a [facility].?See result details for the performing location [...] Non-Reacti Lab specimen s received at a [facility].?See result details for the performing location information. ABO/RH Reviewed date:09/22/2024 02:00:14 PM Interpretation:B+ Performing Lab: Notes/Report: ABO TYPE B RH TYPE Positive Lab specimens received at a [facility].?See result details for the performing location information. HEPATITIS B SURFACE ANTIGEN Reviewed date:09/22/2024 03:14:39 PM Interpretation:Negative Performing Lab: Notes/Report: HEPATITIS B SURFACE ANTIGEN Non-Reactive Non-Reacti Lab specimens received at a [facility].?See result details for the performing location information. RUBELLA ANTIBODY, IGG Reviewed date:09/24/2024 08:54:55 AM Interpretation:Immune Performing Lab: Notes/Report: Performed at: [address] [id number] Visual Stylist: Krishna Villalba PhD, Phone: [phone] RUBELLA ANTIBODIES, IGG (REF) 3.10 Immune >0. index Non-immune <0.90 Immune >0.99 Equivocal 0.90 - 0.99 Lab specimens received at a [facility].?See result details for the performing location information. TREPONEMA PALLIDUM (SYPHILIS ) SCREENING CASCADE Reviewed date:09/22/2024 03:14:39 PM Interpretation:Negative Performing Lab: Notes/Report: Reactive results will reflex RPR testing. TREPONEMAL AB TOTAL Non-Reactive Non-Reacti Lab specimens received at a [facility].?See result details for the performing location information. GLUCOSE, RANDOM Reviewed date:09/22/2024 03:14:39 PM Interpretation:Normal Performing Lab: Notes/Report: GLUCOSE RANDOM 99 65-99 mg/dL Lab speci mens received at a [facility].?See result details for the performing location information. CHLAMYDIA TRACHOMATIS, NEISS ERIA GONORRHOEAE, TRICHOMONAS VAGINALIS, PCR Reviewed date:09/24/2024 08:54:55 AM Interpretation:Negative Performing Lab: Notes/Report: Performed at: [address] [id number] Visual Stylist: Romi Ivory MD, Phone: [phone] CHLAMYDIA TRACHOMATIS, ROSELIA Negative Negative GONOCOCCUS BY ROSELIA Negative Negative TRICHOMONAS VAG Negative Negative Lab speci mens received at a [facility].?See result details for the performing location information. FENTANYL, URINE Reviewed date:09/22/2024 02:00:15 PM Interpretation:Negative [...] Negative Lab specim ens received at a [facility].?See result details for the performing location information. Non Invasive Testin g Reviewed date:10/06/2024 02:24:47 PM Interpretation:low fraction Performing Lab: Notes/Report: low fraction URINE CULTURE Reviewed date:09/24/2024 08:54:55 AM Interpretation:lactobacillus [...] Lactobacillus species Lab specimens received at a [facility].?See result details for the performing location [...] Negative Lab specime ns received at a [facility].?See result details for the performing location information. *US OB Complete Transabdomin al/Vaginal Reviewed date:10/07/2024 07:10:53 PM Interpretation: Performing Lab: Notes/Report: [facility] Transabdominal Obstetric Study Report Name: JAMARCUS NEGRO Accession/Encounter No:[id number] Procedure/Order ID: [id number] : 1990 Age: 34 Gender: F Study [...] Present Biometry (Fetus A) HR: 165 bpm [place]-rump length:37.8 mm 10w 5d 53% Findings: Anatomy: [...] 1 of 1 Imaging Center - , [facility] Reason For Referral No Information Medications Medication SIG (Take, Route, Frequency, Duration) Notes Start Date End Date Status Sertraline HCl 25 MG Tablet 1 tablet Ora lly Once a day Active 27-0.8 MG Tablet 1 tablet Orally Active Fluconazole 150 MG Tablet 1 tablet Orally Now; Duration: 2 days May repeat in 24-48 hours if needed. 10/29/2024 Active Social History Tobacco Use: Social History [...] Status W/U Status Risk Notes Problem Anxiety (30147948) Anxiety (F41.9) Active confirmed Problem Encounter for supervision of other normal in second trimester (Z34.82) Active confirmed Vital Signs Weight 186.4 lbs 10/28/2024 Encounters Encounter Location Date Provider Diagnosis [facility] [address] [facility] [address] [place] [address] 09/02/2024 [facility] with uncertain viability, single or unspecified fetus O36.80X0 [facility] [address] [facility] [address] [place] [address] 10/29/2024 Nemo James Yeast infection B37. 9 [facility] [address] [facility] [address] [place] [address] 10/30/2024 [facility] [address] [facility] [address] [place] [address] 09/22/2024 [facility] Encounter for test, result positive Z32.01 [facility] [address] [place] [address] 10/28/2024 Nemo James Encounter for supervision of other normal in second trimester Z34.82 ; 15 weeks gestation of Z3A.15 ; Vaginal discharge N89.8 ; Anxiety F41.9 and Acute nonintractable headache, unspecified headache type R51.9 [facility] [address] [facility] [address] [place] [address] 09/22/2024 Gina Roth with uncertain viability, single or unspecified fetus O36.80X0 Assessments Encounter Date Diagnosis (ICD Code) Assessment Notes Treatment Notes Treatment Clinical Notes Section Notes 09/22/2024 Encounter for test, result positive (ICD-10 - Z32.01) 10/29/2024 Yeast infection (ICD-10 - B37.9) 09/22/2024 with uncertain viability, single or unspecified [...] type (ICD-10 - R51.9) Plan Of Treatment Future Test Test Name Order Date *US OB Detailed Anatomy 10/28/2024 Next Appt Details Provider Name:Gina Gonzalez, 11/19/2024 11:00:00 AM, [address] [place], [address], Provider Name:Gina Gonzalez, 11/19/2024 11:15:00 AM, [address], [place], [address], Provider Name:Gina Roth, 12/24/2024 11:30:00 AM, [address], [place], [address], Provider Name:Gina Roth, 01/21/2025 01:45:00 PM, [address], [place], [address], Provider Name:Gina Roth, 02/04/2025 11:15:00 AM, [address], [place], [address], Provider Name:Gina Gonzalez, 02/18/2025 01:00:00 PM, [address], [address], [place], [address], Provider Name:Nemo James, 03/03/2025 01:30:00 PM, [address], [address], [place], [address], Provider Name:Gina Gonzalez, 03/18/2025 11:30:00 AM, [address], [address], [place], [address], Provider Name:Gina Gonzalez, 03/25/2025 11:30:00 AM, [address], [address], [place], [address], Provider Name:Gina Gonzalez, 04/01/2025 11:30:00 AM, [address], [address], [place], [address], Provider Name:Gina Gonzalez, 04/08/2025 11:15:00 AM, [address], [address], [place], [address], Provider Name:Gina Gonzalez, 04/15/2025 11:30:00 AM, [address], [address], [place], [address], Insurance Providers Payer Name Payer Address Payer Phone Subscriber Number Group Number Insured Name Patient Relationship to Insured Coverage Start Date Coverage End Date [facility] [address] [place] [address] [id number] Jamarcus Negro Self - patient is the insured Medical (General) History Medical History History ICD Code Anxiety Depression ov cysts hashoimotos *Gestational diabetes mellit us in , Insulin controlled (Code also - Weeks of gestation Z3A) O24.414 Torsion of right ovary N83.511 Surgical History Surgery Date(Month/Year) 2020 Cholecystectomy 2012 Tonsilectomy 2003 Hospitalization History Reason Date(Month/Year) tonsils c/s
== END 2024-11-04 23:59 | disposition home or self-care (01) ==
LOC: LAB 09:52
PROVIDERS: PCP Nurse Practitioner Family; Visit Provider Student in an Organized Health Care Education/Training Program
DX: D35.2 Benign neoplasm of pituitary gland (principal)
CPT/HCPCS: 36415; 82024; 82533

== ENCOUNTER 2024-11-19 09:37 | Outpatient (CLI) | payer OTHER, SELFPAY ==
--- OUTSIDE RECORDS SUMMARY | 2024-09-22 11:00 | XMS_ITS | Encounter Summary ---
[facility] Address [address] [place] [id number] Care Team Providers Care Dough Puncher Name Role Phone Nayeli Copeland APRN Primary Care Provider [phone] Encounter Details Date Type Department Care Team (Late st Contact Info) Description 09/22/2024 11:00 AM EDT Lab [facility] [address] [place] [id number] examination or test, positive result Social History Tobacco Use Types Packs/Day Years Used Date Smoking Tobacco: Never Smokeless Tobacco: Never Alcohol Use Standard Drinks/Week Comments Not Currently 0 (1 standard drink = 0.6 oz pur e alcohol) socially [place] Depression Scale Answer Date Recorded [place] Depression Scale Total 6 06/27/2020 The thought of harming myself has occurred to me . Never 06/27/2020 Abuse Screen Answer Date Recorded Unsafe at Home or Work/School Not on file Feels Threatened by Someone? Not on file 01/2023 Does Anyone Keep You from Co ntacting Others or Doint Things Outside the Home? Not on file 12/20/2022 Physical Sign of Abuse Present Not on file 1 Housing Stability Answer Date Recorded Current Living Arrangements Not on file 12/10 Potentially Unsafe Housing Conditions Not on chel e 12/20/2022 Family and Community Support Answer Asad e Recorded Help with Day-to-Day Activities Not on file 12/20/2022 Lonely or Isolated Not on file 12/20/2022 Employment Answer Date Recorded Do you want help finding or keeping work or a merry b? Not on file 12/20/2022 Disabilities Answer Date Recorded Concentrating, Remembering, or Making Decisions Difficulty Not on file 12/20/2022 Doing Errands Independently Difficulty Not on fi le 12/20/2022 Education Answer Date Recorded Help with school or training? Not on file Preferred Language Not on file 12/20/2022 Comments No Sex and Gender Information Value Date Recorded Sex Assigned at Not on file Legal Sex Female 1:28 PM EDT Gender Identity Not on file Sexual Orientation Not on file documented as of this encounter Plan of Treatment Not on file documented as of this encounter Procedures Procedure Name Priority Date/Time Associated Diagnosis Comments TREPONEMA PALLIDUM AB W/REFLEX RPR Routine 09/22/2024 10:46 AM EDT examination or test, positive result LAB COLLECTION PROCESSING Routine 09/22/2024 10:46 AM EDT examination or test, positive result HIV-1/O/2 ANTIGEN/ANTIBODY Routine 09/22/2024 10:46 AM EDT examination or test, positive result CHLAMYDIA TRACHOMATIS, NEISSERIA GONORRHOEAE, TRICHOMONAS VAGINALIS, PCR Routine 09/22/2024 10:46 AM EDT examination or test, positive result HEPATITIS C ANTIBODY Routine 09/22/2024 10:46 AM EDT examination or test, positive result URINE DRUG SCREEN Routine 09/22/2024 10: 46 AM EDT examination or test, positive result ABO/RH Routine 09/22/2024 10:46 AM EDT examination or test, positive result FENTANYL, URINE Routine 09/22/2024 10:46 AM EDT examination or test, positive result RUBELLA ANTIBODY, IGG Routine 09/22/2024 10:46 AM EDT examination or test, positive result HEPATITIS B SURFACE ANTIGEN Routine 09/22/2024 10:46 AM EDT examination or test, positive result CBC (NO DIFF) Routine 09/22/2024 10:46 AM EDT examination or test, positive result ANTIBODY SCREEN Routine 09/22/2024 10:46 AM EDT examination or test, positive result URINE CULTURE Routine 09/22/2024 10:46 AM EDT examination or test, positive result GLUCOSE, RANDOM Routine 09/22/2024 10:46 AM EDT examination or test, positive result documented in this encounter Results * Fentanyl, Urine - Urine, Clean Catch (09/22/2024 10:46 AM EDT) Fentanyl, Urine Negative Negative 09/22/2024 11:33 AM EDT [facility] Urine Urine specimen obtained by clean catch procedure / Unknown Collection / Unknown 09/22/2024 10:46 AM EDT 09/22/2024 10:46 AM EDT Narrative [facility] - 09/22/2024 11:33 AM EDT Negative Threshold: Fentanyl 5 ng/mL The normal value for the drug tested is negative. This report includes final unconfirmed screening results to be used for medical treatment purposes only. Unconfirmed results must not be used for non-medical purposes such as employment or legal testing. Clinical consideration should be applied to any drug of abuse test, particularly when unconfirmed results are used. us Gina Roth MD URINE ORDERABLES Final Result [facility]
[address] [place] [address], * (ABNORMAL) Urine Culture - Urine, Urine, Clean Catch (09/22/2024 10:46 AM EDT) Urine Culture 25,000 CFU/mL Lactobacillus species(A) SOLA 09/23/2024 1:38 PM EDT [facility] Comment: Based on laboratory diagnosis criteria, these organisms are common urogenital commensal javan and have not been associated with urinary tract infections; clinical correlation is recommended. Urine Urine specimen obtained by clean catch procedure / Unknown Collection / Unknown 09/22/2024 10:46 AM EDT 09/22/2024 10:46 AM EDT [facility] - 09/23/2024 1:38 PM EDT Colonization of the urinary tract without infection is common. Treatment is discouraged unless the patient is symptomatic, , or undergoing an invasive urologic procedure. us Gina Roth MD MICROBIOLOGY - GENERAL ORDERAB LES Final Result Performing Organization Address [facility]/ZIP Co de Phone Number [facility]
[address] [place] [address], * Treponema pallidum AB w/Reflex RPR (09/22/2024 10:46 AM EDT) Treponemal AB Total Non-Reacti ve Non-React consuelo 09/22/2024 2:51 PM EDT [facility] Blood Venipuncture / Unknown 09/22/2024 10:46 AM EDT 09/22/2024 10:46 AM EDT [facility] - 09/22/2024 2:51 PM EDT Reactive results will reflex RPR testing. us Gina Roth MD LAB BLOOD ORDERABLES Final Res ult Performing Organization Address [facility]/ZIP Co de Phone Number [facility]
[address] [place] [address], * Rubella Antibody, IgG (09/22/2024 10:46 AM EDT) Rubella Antibodies, IgG 3.10 Immune >0.99 index 09/23/2024 6:09 AM EDT [facility] Comment: Non-immune <0.90 Equivocal 0.90 - 0.99 Immune >0.99 Blood Venipuncture / Unknown 09/22/2024 10:46 AM EDT 09/22/2024 10:46 AM EDT Narrative [facility] - 09/23/2024 6:09 AM EDT Performed at: [address] [place] [address] [id number] Ep Tech: Krishna Villalba PhD, Phone: [phone] us Gina Roth MD LAB BLOOD ORDERABLES Final Res ult [address] [address], * HIV-1 / O / 2 Ag / Antibody 4th Generation (09/22/2024 10:46 AM EDT) HIV DUO Non-Reacti ve Non-Reacti ve 09/22/2024 2:51 PM EDT [facility] Blood Venipuncture / Unknown 09/22/2024 10:46 AM EDT 09/22/2024 10:46 AM EDT Narrative [facility] - 09/22/2024 2:51 PM EDT The HIV antibody/antigen combo assay is a qualitative assay for HIV that includes the p24 antigen as well as antibodies to HIV types 1 and 2. This test is intended to be used as a screening assay in the diagnosis of HIV infection in patients over the age of 2. us Gina Roth MD LAB BLOOD ORDERABLES Final Res ult [facility]
[address] [place] [address], * Hepatitis C Antibody (09/22/2024 10:46 AM EDT) Hepatitis C Ab Non-Reacti ve Non-Reacti ve 09/22/2024 2:51 PM EDT [facility] Blood Venipuncture / Unknown 09/22/2024 10:46 AM EDT 09/22/2024 10:46 AM EDT us Gina Roth MD LAB BLOOD ORDERABLES Final Res ult Performing Organization Address City/[facility]/ZIP Co de Phone Number [facility]
[address] [place] [address], * Hepatitis B Surface Antigen (09/22/2024 10:46 AM EDT) Pathologist [facility] Hepatitis B Surface Ag Non-Reacti ve Non-Reacti ve 09/22/2024 2:43 PM EDT [facility] Blood Venipuncture / Unknown 09/22/2024 10:46 AM EDT 09/22/2024 10:46 AM EDT us Gina Roth MD LAB BLOOD ORDERABLES Final Res ult Performing Organization Address [facility] Co de Phone Number [facility]
[address] [place] [address], [place] [phone] * Glucose, Random (09/22/2024 10:46 AM EDT) [facility] Glucose 99 65 - 99 mg/dL 09/22/2024 2:59 PM EDT [facility] Blood Venipuncture / Unknown 09/22/2024 10:46 AM EDT 09/22/2024 10:46 AM EDT us Gina Roth MD LAB BLOOD ORDERABLES Final Res ult Performing Organization Address [facility] Co de Phone Number [facility]
[address] [place] [address], [place] [phone] * Urine Drug Screen - Urine, Clean Catch (09/22/2024 10:46 AM EDT) Pathologist [facility] THC, Screen, Urine Negative Negative 2024 11:14 AM EDT [facility] Phencyclidine (PCP), Urine Negative Negative 09/22/2024 11:14 AM EDT [facility] Cocaine Screen, Urine Negative Negative 09/22/2024 11:14 AM T [facility] Methamphetamine, Ur Negative Negative 09/22 11:14 AM EDT [facility] Opiate Screen Negative Negative 09/22/2024 11:14 AM EDT [facility] Amphetamine Screen, Urine Negative Negative 09/22/2024 11:14 AM [facility] Benzodiazepine Screen, Urine Negative Negative 09/22/2024 11:14 AM [facility] Tricyclic Antidepressants Screen Negative Negative 09/22/2024 11:14 AM [facility] Methadone Screen, Urine Negative Negative 09/22/2024 11:14 AM [facility] Barbiturates Screen, Urine Negative Negative 09/22/2024 11:14 AM EDT [facility] Oxycodone Screen, Urine Negative Negative 09/22/2024 11:14 AM [facility] Buprenorphine, Screen, Urine Negative Negative 09/22/2024 11:14 AM [facility] Urine Urine specimen obtained by clean catch procedure / Unknown Collection / Unknown 09/22/2024 10:46 AM EDT 09/22/2024 10:46 AM EDT [facility] - 09/22/2024 11:14 AM EDT Cutoff For Drugs Screened: Amphetamines 500 ng/ml Barbiturates 200 ng/ml Benzodiazepines 150 ng/ml Cocaine 150 ng/ml Methadone 200 ng/ml Opiates 100 ng/ml Phencyclidine 25 ng/ml THC 50 ng/ml Methamphetamine 500 ng/ml Tricyclic Antidepressants 300 ng/ml Oxycodone 100 ng/ml Buprenorphine 10 ng/ml The normal value for all drugs tested is negative. This report includes unconfirmed screening results, with the cutoff values listed, to be used for medical treatment purposes only. Unconfirmed results must not be used for non-medical purposes such as employment or legal testing. Clinical consideration should be applied to any drug of abuse test, particularly when unconfirmed results are used. Gina Roth MD URINE ORDERABLES Final Result [facility]
[address] [place] [address], [place] [phone] * Chlamydia trachomatis, Neisseria gonorrhoeae, Trichomonas vaginalis, PCR - Urine, Urine, Clean Catch (09/22/2024 10:46 AM EDT) Chlamydia trachomatis, ROSELIA Negative Negative 09/24/2024 6:09 AM EDT [facility] Gonococcus by ROSELIA Negative Negative 09/24/2024 6:09 AM EDT [facility] Trichomonas vaginosis Negative Negative 09/24/2024 6:09 AM EDT [facility] Urine Urine specimen obtained by clean catch procedure / Unknown Collection / Unknown 09/22/2024 10:46 AM EDT 09/22/2024 10:46 AM EDT Narrative [facility] - 09/24/2024 6:09 AM EDT Performed at: [address] [place] [address] [id number] Ep Tech: Romi Ivory MD, Phone: [phone] Gina Roth MD MICROBIOLOGY - GENERAL ORDERAB LES Final Result Performing Organization Address City/[facility]/ZIP Co de Phone Number [facility] [address] [place] [address], * Antibody Screen (09/22/2024 10:46 AM EDT) Antibody Screen Negative 09/22/2024 11:39 AM EDT [facility] Blood Venipuncture / Unknown 09/22/2024 10:46 AM EDT 09/22/2024 10:46 AM EDT Gina Roth MD BLOOD BANK TEST ORDERABLES Fin al Result [facility]
[address] [place] [id number], * ABO / Rh (09/22/2024 10:46 AM EDT) Pathologist [facility] ABO Type B 09/22/2024 11:23 AM EDT [facility] RH type Positive 09/22/2024 11:23 AM EDT [facility] Blood Venipuncture / Unknown 09/22/2024 10:46 AM EDT 09/22/2024 10:46 AM EDT Gina Roth MD BLOOD BANK TEST ORDERABLES Fin al Result [facility]
[address] [place] [address], * (ABNORMAL) CBC (No Diff) (09/22/2024 10:46 AM EDT) [facility] WBC 7.71 3.40 - 10.80 10*3/mm3 09/22/2024 2:19 PM EDT [facility] RBC 4.40 3.77 - 5.28 10*6/mm3 09/22/2024 2:19 PM EDT [facility] Hemoglobin 13.5 12.0 - 15.9 g/dL 09/22/2024 2:19 PM EDT [facility] Hematocrit 40.0 34.0 - 46.6 % 09/22/2024 2:19 PM EDT [facility] MCV 90.9 79.0 - 97.0 fL 09/22/2024 2:19 PM EDT [facility] MCH 30.7 26.6 - 33.0 pg 09/22/2024 2:19 PM EDT [facility] MCHC 33.8 31.5 - 35.7 g/dL 09/22/2024 2:19 PM EDT [facility] RDW 13.4 12.3 - 15.4 % 09/22/2024 2:19 PM EDT [facility] RDW-SD 44.4 37.0 - 54.0 fl 09/22/2024 2:19 PM EDT [facility] MPV 13.1(H) 6.0 - 12.0 fL 09/22/2024 2:19 PM EDT [facility] Platelets 183 140 - 450 10*3/mm3 09/22/2024 2:19 PM EDT [facility] Blood Venipuncture / Unknown 09/22/2024 10:46 AM EDT 09/22/2024 10:46 AM EDT Gina Roth MD LAB BLOOD ORDERABLES Final Res ult Performing Organization Address City/[facility]/ZIP Co de Phone Number [facility]
[address] [place] [address], * Lab Collection Processing (09/22/2024 10:46 AM EDT) Blood Venipuncture / Unknown 09/22/2024 10:46 AM EDT 09/22/2024 10:46 AM EDT Gina Roth MD LAB BLOOD ORDERABLES Final Res ult Performing Organization Address City/[facility]/ZIP Co de Phone Number [facility]
[address] [place] [address], documented in this encounter Visit Diagnoses Diagnosis examination or test, positive result documented in this encounter Care Teams Dough Puncher Relationship Specialty Start Date End Date Nayeli Copeland APRN [address] [place] [address] PCP - General Nurse Practitioner 05/26/20 documented as of this encounter
--- OUTSIDE RECORDS SUMMARY | 2024-10-29 13:01 | XMS_ITS ---
Author Organization [facility] Address [address] [facility] [address] [place] [address] Care Team Providers Care Pharm Tech Name Role Phone Gina Roth Unavailable [phone] Nemo James Unavailable [phone] REASON FOR VISIT diflucan sent Medications Medication SIG (Take, Route, Frequency, Duration) Notes Start Date End Date Status Fluconazole 150 MG Tablet 1 tablet Orally Now; Duration: 2 days May repeat in 24-48 hours if needed. 10/29/2024 Active Social History Sex Assigned At : Social History Observation Description Sex Assigned At Female Encounters Encounter Location Date Provider Diagnosis [facility] [address] [facility] [address] [place] [address] 10/29/2024 Nemo James Yeast infection B37.9 Assessments Encounter Date Diagnosis (ICD Code) Assessment Notes Treatment Notes Treatment Clinical Notes Section Notes 10/29/2024 Yeast infection (ICD-10 - B37.9) Plan Of Treatment Medication Medication Name Sig Start Date Stop Date Notes Fluconazole 150 MG Tablet 1 tablet Orall y Now; Duration: 2 days 10/29/2024 Next Appt Details Provider Name:Gina Roth, 11/26/2024 11:00:00 AM, [address] [facility] [address], [address], Provider Name:Gina Roth, 11/26/2024 11:15:00 AM, [address], [facility] [address], [address], Provider Name:Gina Roth, 12/24/2024 11:30:00 AM, [address], [address], [place], [address], Provider Name:Gina Roth, 01/21/2025 01:45:00 PM, [address], [address], [place], [address], Provider Name:Gina Roth, 02/04/2025 11:15:00 AM, [address], [address], [place], [address], Provider Name:Gina Gonzalez, 02/18/2025 01:00:00 PM, [address], [address], [place], [address], Provider Name:Nemo James, 03/03/2025 01:30:00 PM, [address], [address], [place], [address], Provider Name:Gina Roth, 03/18/2025 11:30:00 AM, [address], [address], [place], [address], Provider Name:Gina Roth, 03/25/2025 11:30:00 AM, [address], [address], [place], [address], Provider Name:Gina Roth, 04/01/2025 11:30:00 AM, [address], [address], [place], [address], Provider Name:Gina Gonzalez, 04/08/2025 11:15:00 AM, [address], [address], [place], [address], Provider Name:Gina Roth, 04/15/2025 11:30:00 AM, [address], [address], [place], [address], Progress Notes * Vern NEGROy NDOB:1990 (34 yo F)Acc No.[id number]:10/29/2024 Patient: Destiny TEJADA :1990 A ge:34 Y S ex:Female Address:[address] [place] [address], [place] [address] * Refills Start Fluconazole Tablet, 150 MG, Orally, 2, 1 tablet, Now, May repeat in 24-48 hours if needed., 2 days, Refills=1 Subjective: * Chief Complaints: * D iflucan sent Assessment: * Assessment: 1. Y east infection - B37.9 (Primary) Plan: * Treatment: * true * Date: Generated for Fidel fontana/Reinier/Jennifer on: 0 11/19/2024 09:44 AM EDT
--- OUTSIDE RECORDS SUMMARY | 2024-11-18 05:00 | XMS_ITS ---
Author Organization [facility] Address [address] [place] [address] Care Team Providers Care Dietetic Aide Name Role Phone Gina Roth Unavailable [phone] Genoveva Greene Unavailable [phone] REASON FOR VISIT 20 wk Social History Sex Assigned At : Social History Observation Description Sex Assigned At Female Encounters Encounter Location Date Provider Diagnosis [facility] [address] [place] [address] 11/18/2024 Genoveva Greene Plan Of Treatment Next Appt Details Provider Name:Gina Roth, 11/26/2024 11:00:00 AM, [address] [facility], [address], [place], [address], Provider Name:Gina Roth, 11/26/2024 11:15:00 AM, [address] [facility], [address], [place], [address], Provider Name:Gina Roth, 12/24/2024 11:30:00 AM, [address], [address], [place], [address], Provider Name:Gina Roth, 01/21/2025 01:45:00 PM, [address], [place], [address], Provider Name:Gina Roth, 02/04/2025 11:15:00 AM, [address], [address], [place], [address], Provider Name:Gina Gonzalez, 02/18/2025 01:00:00 PM, [address], [address], [place], [address], Provider Name:Nemo James, 03/03/2025 01:30:00 PM, [address], [address], [place], [address], Provider Name:Gina Gonzalez, 03/18/2025 11:30:00 AM, [address], [address], [place], [address], Provider Name:Gina Gonzalez, 03/25/2025 11:30:00 AM, [address], [address], [place], [address], Provider Name:Gina Gonzalez, 04/01/2025 11:30:00 AM, [address], [address], [place], [address], Provider Name:Gina Gonzalez, 04/08/2025 11:15:00 AM, [address], [address], [place], [address], Provider Name:Gina Gonzalez, 04/15/2025 11:30:00 AM, [address], [address], [place], [address], Progress Notes * Destiny NEGRO NDOB:1990 (34 yo F)Acc No.[id number]:11/18/2024 Progress Note Patient: Angy Destiny werner Provider: Fabricio Greene APRN :1990 A ge:34 Y S ex:Female Date:11/18/2024 Address:[address] [place] [address] Subjective: * Chief Complaints: * 2 0 wk * Electronic signature of Vict renetta Greene NP on 11/19/2024 at 09:44 AM EDT Sign off status: Pending Visit Status: R /S (Rescheduled) * Provider: Fabricio Greene APRN Date: 11/18/2024 Generated for Fidel fontana/Reinier/Jennifer on: 0 11/19/2024 09:44 AM EDT
--- OUTSIDE RECORDS SUMMARY | 2024-11-18 06:00 | XMS_ITS ---
Author Organization [facility], [facility] Address [address] [place] [address] Care Team Providers Care Manager Staffing Name Role Phone Gina Roth Unavailable [phone] Genoveva Greene Unavailable [phone] REASON FOR VISIT 20 wk Social History Sex Assigned At : Social History Observation Description Sex Assigned At Female Encounters Encounter Location Date Provider Diagnosis [facility] [address] [place] [address] 11/18/2024 Genoveva Greene Plan Of Treatment Next Appt Details Provider Name:Gina Roth, 11/26/2024 11:00:00 AM, [address] [facility], [place], [address], Provider Name:Gina Roth, 11/26/2024 11:15:00 AM, [address] [facility], [address], [place], [address], Provider Name:Gina Roth, 12/24/2024 11:30:00 AM, [address], [place], [address], Provider Name:Gina Roth, 01/21/2025 01:45:00 PM, [address], [place], [address], Provider Name:Gina Roth, 02/04/2025 11:15:00 AM, [address], [address], [place], [address], Provider Name:Gina Gonzalez, 02/18/2025 01:00:00 PM, [address], [address], [place], [address], Provider Name:Nemo James, 03/03/2025 01:30:00 PM, [address], [address], [place], [address], Provider Name:Gina Gonzalez, 03/18/2025 11:30:00 AM, [address], [address], [place], [address], Provider Name:Gina Gonzalez, 03/25/2025 11:30:00 AM, [address], [address], [place], [address], Provider Name:Gina Gonzalez, 04/01/2025 11:30:00 AM, [address], [address], [place], [address], Provider Name:Gina Gonzalez, 04/08/2025 11:15:00 AM, [address], [address], [place], [address], Provider Name:Gina Gonzalez, 04/15/2025 11:30:00 AM, [address], [address], [place], [address], Progress Notes * Destiny NEGRO NDOB:1990 (34 yo F)Acc No.[id number]:11/18/2024 Progress Note Patient: Angy Destiny werner Provider: Fabricio Greene APRN :1990 A ge:34 Y S ex:Female Date:11/18/2024 Address:[address] [place] [address] Subjective: * Chief Complaints: * 2 0 wk * Electronic signature of Vict renetta Greene NP on 11/19/2024 at 09:44 AM EDT Sign off status: Pending Visit Status: R /S (Rescheduled) * Provider: Fabricio Greene APRN Date: 11/18/2024 Generated for Fidel fontana/Reinier/Jennifer on: 0 11/19/2024 09:44 AM EDT
--- OUTSIDE RECORDS SUMMARY | 2024-11-19 09:44 | XMS_ITS | Clinical Summary ---
Author Organization [facility] [facility] Address [address] [place] [address] Care Team Providers Care Environmental Services Manager Name Role Phone Nayeli Copeland APRN Primary Care Provider [phone] Allergies No known active allergies Medications Vit-Fe [...] Team Description 09/22/2024 11:00 AM EDT Lab [facility] [address] [place] [address] examination or test, positive result [...] = 0.6 oz pur e alcohol) socially [place] Depression Scale Answer Date Recorded [place] Depression Scale Total 6 06/27/2020 The thought [...] 10/14/2012 10/14/2002 ANNUAL PHYSICAL 09/25/2019 COVID-19 Vaccine (3 - 2024-2 6 season) 2024 11/25/2020, 10/27/2020 INFLUENZA VACCINE 12/10/2024 01/23/2023, 01/09/2022, [...] ve Non-React consuelo 09/22/2024 2:51 PM EDT [facility] Blood Venipuncture / Unknown 09/22/2024 10:46 AM EDT 09/22/2024 10:46 AM EDT Narrative [facility] - 09/22/2024 2:51 PM EDT Reactive results will reflex RPR testing. us Gina Roth MD LAB BLOOD ORDERABLES Final Res ult Performing Organization Address City/[facility]/ZIP Co de Phone Number [facility]
[address] [place] [address], * Lab Collection Processing (09/22/2024 10:46 AM EDT) Blood Venipuncture / Unknown 09/22/2024 10:46 AM EDT 09/22/2024 10:46 AM EDT us Gina Roth MD LAB BLOOD ORDERABLES Final Res ult [facility]
[address] [place] [address], * HIV-1 / O / 2 Ag / Antibody 4th Generation (09/22/2024 10:46 AM EDT) HIV DUO Non-Reacti ve Non-Reacti ve 09/22/2024 2:51 PM EDT [facility] Blood Venipuncture / Unknown 09/22/2024 10:46 AM EDT 09/22/2024 10:46 AM EDT Narrative [facility] - 09/22/2024 2:51 PM [...] MD LAB BLOOD ORDERABLES Final Res ult [facility]
[address] [place] [address], * Chlamydia trachomatis, Neisseria gonorrhoeae, Trichomonas vaginalis, [...] 10:46 AM EDT 09/22/2024 10:46 AM EDT [facility] - 09/24/2024 6:09 AM EDT Performed at: [address] [place] [id number] Time Cycle Operator: Romi Ivory MD, Phone: [phone] Gina Roth MD MICROBIOLOGY - GENERAL ORDERAB LES Final Result [facility] [address] [place] [address], [place] [phone] * Hepatitis C Antibody (09/22/2024 10:46 AM EDT) Hepatitis C Ab Non-Reacti ve Non-Reacti ve 09/22/2024 2:51 PM EDT [facility] Blood Venipuncture / Unknown 09/22/2024 10:46 AM EDT 09/22/2024 10:46 AM EDT us Gina Roth MD LAB BLOOD ORDERABLES Final Res ult [facility]
[address] [place] [address], [place] [phone] * Urine Drug Screen - Urine, Clean Catch (09/22/2024 10:46 AM EDT) THC, Screen, Urine Negative Negative 2024 11:14 AM EDT [facility] Phencyclidine (PCP), Urine Negative Negative 09/22/2024 11:14 AM EDT [facility] Cocaine Screen, Urine Negative Negative 09/22/2024 11:14 AM EDT [facility] Methamphetamine, Ur Negative Negative 09/22 11:14 AM EDT [facility] Opiate Screen Negative Negative 09/22/2024 11:14 AM EDT [facility] Amphetamine Screen, Urine Negative Negative 09/22/2024 11:14 AM EDT [facility] Benzodiazepine Screen, Urine Negative Negative 09/22/2024 11:14 AM EDT [facility] Tricyclic Antidepressants Screen Negative Negative 09/22/2024 11:14 AM EDT [facility] Methadone Screen, Urine Negative Negative 09/22/2024 11:14 AM EDT [facility] Barbiturates Screen, Urine Negative Negative 09/22/2024 11:14 AM EDT [facility] Oxycodone Screen, Urine Negative Negative 09/22/2024 11:14 AM EDT [facility] Buprenorphine, Screen, Urine Negative Negative 09/22/2024 11:14 AM [facility] Urine Urine specimen obtained by clean catch procedure / Unknown Collection / Unknown 09/22/2024 10:46 AM EDT 09/22/2024 10:46 AM EDT Narrative [facility] - 09/22/2024 11:14 AM EDT Cutoff [...] Gina Roth MD URINE ORDERABLES Final Result [facility]
[address] [place] [address], * ABO / Rh (09/22/2024 10:46 AM EDT) ABO Type B 09/22/2024 11:23 AM EDT [facility] RH type Positive 09/22/2024 11:23 AM EDT [facility] Blood Venipuncture / Unknown 09/22/2024 10:46 AM EDT 09/22/2024 10:46 AM EDT Gina Roth MD BLOOD BANK TEST ORDERABLES Fin al Result [facility]
[address] [place] [address], * Fentanyl, Urine - Urine, Clean Catch (09/22/2024 10:46 AM EDT) Fentanyl, Urine Negative Negative 09/22/2024 11:33 AM EDT [facility] Urine Urine specimen obtained by clean catch procedure / Unknown Collection / Unknown 09/22/2024 10:46 AM EDT 09/22/2024 10:46 AM EDT [facility] - 09/22/2024 11:33 AM [...] Gina Roth MD URINE ORDERABLES Final Result [facility]
[address] [place] [address], * Rubella Antibody, IgG (09/22/2024 10:46 AM EDT) Rubella Antibodies, IgG 3.10 Immune >0.99 index 09/23/2024 6:09 AM EDT [facility] Comment: Non-immune <0.90 Equivocal 0.90 - 0.99 Immune >0.99 Blood Venipuncture / Unknown 09/22/2024 10:46 AM EDT 09/22/2024 10:46 AM EDT [facility] - 09/23/2024 6:09 AM EDT Performed at: [address] [place] [id number] Time Cycle Operator: Krishna Villalba PhD, Phone: [phone] Gina Roth MD LAB BLOOD ORDERABLES Final Res ult [facility] [address] [place] [address], * Hepatitis B Surface Antigen (09/22/2024 10:46 AM EDT) Hepatitis B Surface Ag Non-Reacti ve Non-Reacti ve 09/22/2024 2:43 PM EDT [facility] Blood Venipuncture / Unknown 09/22/2024 10:46 AM EDT 09/22/2024 10:46 AM EDT us Gina Roth MD LAB BLOOD ORDERABLES Final Res ult [facility]
[address] [place] [address], * (ABNORMAL) CBC (No Diff) (09/22/2024 10:46 AM EDT) WBC 7.71 3.40 - 10.80 10*3/mm3 09/22/2024 2:19 PM EDT [facility] RBC 4.40 3.77 - 5.28 10*6/mm3 09/22/2024 2:19 PM EDT [facility] Hemoglobin 13.5 12.0 - 15.9 g/dL 09/22/2024 2:19 PM EDT [facility] Hematocrit 40.0 34.0 - 46.6 % 09/22/2024 2:19 PM EDT [facility] MCV 90.9 79.0 - 97.0 fL 09/22/2024 2:19 PM EDT [facility] MCH 30.7 26.6 - 33.0 pg 09/22/2024 2:19 PM EDT [facility] MCHC 33.8 31.5 - 35.7 g/dL 09/22/2024 2:19 PM EDT [facility] RDW 13.4 12.3 - 15.4 % 09/22/2024 2:19 PM EDT [facility] RDW-SD 44.4 37.0 - 54.0 fl 09/22/2024 2:19 PM EDT [facility] MPV 13.1(H) 6.0 - 12.0 fL 09/22/2024 2:19 PM EDT [facility] Platelets 183 140 - 450 10*3/mm3 09/22/2024 2:19 PM EDT [facility] Blood Venipuncture / Unknown 09/22/2024 10:46 AM EDT 09/22/2024 10:46 AM EDT us Gina Roth MD LAB BLOOD ORDERABLES Final Res ult [facility]
[address] [place] [address], * Antibody Screen (09/22/2024 10:46 AM EDT) Pathologist [facility] Antibody Screen Negative 09/22/2024 11:39 AM EDT [facility] Blood Venipuncture / Unknown 09/22/2024 10:46 AM EDT 09/22/2024 10:46 AM EDT us Gina Roth MD BLOOD BANK TEST ORDERABLES Fin al Result Performing Organization Address [facility]/ZIP Co de Phone Number [facility]
[address] [place] [address], [place] [phone] * (ABNORMAL) Urine Culture - Urine, Urine, Clean Catch (09/22/2024 10:46 AM EDT) [facility] Urine Culture 25,000 CFU/mL Lactobacillus species(A) SOLA 09/23/2024 1:38 PM EDT [facility] Comment: Based on laboratory diagnosis criteria, these organisms are common urogenital commensal javan and have not been associated with urinary tract infections; clinical correlation is recommended. Urine Urine specimen obtained by clean catch procedure / Unknown Collection / Unknown 09/22/2024 10:46 AM EDT 09/22/2024 10:46 AM EDT Narrative [facility] - 09/23/2024 1:38 PM EDT Colonization of the urinary tract without infection is common. Treatment is discouraged unless the patient is symptomatic, , or undergoing an invasive urologic procedure. us Gina Roth MD MICROBIOLOGY - GENERAL ORDERAB LES Final Result Performing Organization Address City/[facility]/ZIP Co de Phone Number [facility]
[address] [place] [address], [place] [phone] * Glucose, Random (09/22/2024 10:46 AM EDT) Glucose 99 65 - 99 mg/dL 09/22/2024 2:59 PM EDT [facility] Blood Venipuncture / Unknown 09/22/2024 10:46 AM EDT 09/22/2024 10:46 AM EDT Gina Roth MD LAB BLOOD ORDERABLES Final Res ult Performing Organization Address City/[facility]/ZIP Co de Phone Number [facility]
[address] [place] [address], [place] [phone] from Last [address] [place] [address] Advance Directives * CPR (Attempt to Resuscitate) [...] pulse or is breathing): Full Care Teams Environmental Services Manager Relationship Specialty Start Date End Date Nayeli Copeland APRN [address] [place] [address] PCP - General Nurse Practitioner 05/26/20
--- OUTSIDE RECORDS SUMMARY | 2024-11-19 09:44 | XMS_ITS | Encounter Summary ---
Author Organization [facility] Address [address] [place] [address] Care Team Providers Care Clinical Administrative Coordinator Name Role Phone Nayeli Copeland APRN Primary Care Provider [phone] Encounter Details Date Type Department Care Team (Latest Contact Info) Description 09/22/2024 Travel Social History Tobacco Use Types Packs/Day Years Used Date Smoking Tobacco: Never Smokeless Tobacco: Never Alcohol Use Standard Drinks/Week Comments Not Currently 0 (1 standard drink = 0.6 oz pur e alcohol) socially [place] Depression Scale Answer Date Recorded [place] Depression Scale Total 6 06/27/2020 The thought [...] on filedocumented in this encounter Care Teams Clinical Administrative Coordinator Relationship Specialty Start Date End Date Nayeli Copeland APRN [address] [place] [address] PCP - General Nurse Practitioner 05/26/20 documented as of this encounter
--- OUTSIDE RECORDS SUMMARY | 2024-11-19 09:44 | XMS_ITS | Patient Health Record ---
Author Organization [facility] Address [address] [place] [address] Care Team Providers Care Photographic Equipment Assembler Name Role Phone Gina Roth Unavailable [phone] Nemo James Unavailable [phone] Genoveva Greene Unavailable [phone] Allergies Allergen (clinical drug ingredient) Drug/Non Drug Allergy documented on EMR Reaction Allergy Type Onset Date Status MORPHINE SULFATE (MORPHINE SULFATE TABS) Unspecified Drug Allergy 11/05/2019 Active Results Component Value Reference Range Flag Notes *US OB Complete Transabdomin al/Vaginal Reviewed date:10/07/2024 07:10:53 PM Interpretation: Performing Lab: Notes/Report: [facility] Transabdominal Obstetric Study Report Name: JAMARCUS NEGRO Accession/Encounter No:[id number] Procedure/Order ID: [id number] : 1990 Age: 34 Gender: F Study [...] Present Biometry (Fetus A) HR: 165 bpm [place]-rump length:37.8 mm 10w 5d 53% Findings: Anatomy: [...] 1 of 1 Imaging Center - , [facility] Génesis/Bacterial Vaginosis, ROSELIA (Aptima) Reviewed date:10/29/2024 05:03:39 PM Interpretation:+yeast Performing Lab:[facility] [place] CLIA ID [id number], [address] [facility], [address], [place] [address], Director - Ben Landaverde MD Notes/Report: Bacterial Vaginosis Negative Negative The Aptima BV assay is a real time NAAT TMA assay developed for use on the automated Grandview system that detects and discriminates RNA markers from the Lactobacillus species group (L. gasseri, L. crispatus and L. jensenii), Gardnerella vaginalis, and Atopobium vaginae. The Aptima BV assay uses an algorithm for bacterial vaginosis based on detection of target organisms. Génesis species Positive Negative A The CV Assay is a real time TMA assay developed for use on the automated [employer]view system that detects following Génesis species organisms (C. albicans, C. tropicalis, C. parapsilosis, C. dubliniensis), but the assay does not differentiate among C spp. Génesis glabrata Negative Negative URINE DRUG SCREEN Reviewed date:09/22/2024 11:32:04 AM [...] Negative Lab specime ns received at a [facility].?See result details for the performing location information. URINE CULTURE Reviewed date:09/24/2024 08:54:55 AM Interpretation:lactobacillus - not clinically significant Performing Lab: Notes/Report: Colonization of the urinary tract without infection is common. Treatment is discouraged unless the patient is symptomatic, , or undergoing an invasive urologic procedure. URINE CULTURE 1371 LACTOBACILLUS SPECIES A 25,000 CFU/mL Lactobacillus species Based on laboratory diagnosis criteria, these organisms are common urogenital commensal javan and have not been associated with urinary tract infections; clinical correlation is recommended. Lab specimens received at a [facility].?See result details for the performing location information. ANTIBODY SCREEN Reviewed date:09/22/2024 02:00:14 PM Interpretation:Negative Performing Lab: Notes/Report: ANTIBODY SCREEN Negative Lab speci mens received at a [facility].?See result details for the performing location information. HEPATITIS C ANTIBODY Reviewed date:09/22/2024 03:14:39 PM Interpretation:Negative Performing Lab: Notes/Report: HEPATITIS C ANTIBODY Non-Reactive Non-Reacti La b specimens received at a [facility].?See result details for the performing location [...] Non-Reacti Lab specimen s received at a [facility].?See result details for the performing location information. ABO/RH Reviewed date:09/22/2024 02:00:14 PM Interpretation:B+ Performing Lab: Notes/Report: ABO TYPE B RH TYPE Positive Lab specimens received at a [facility].?See result details for the performing location information. HEPATITIS B SURFACE ANTIGEN Reviewed date:09/22/2024 03:14:39 PM Interpretation:Negative Performing Lab: Notes/Report: HEPATITIS B SURFACE ANTIGEN Non-Reactive Non-Reacti Lab specimens received at a [facility].?See result details for the performing location information. TREPONEMA PALLIDUM (SYPHILIS ) SCREENING CASCADE Reviewed date:09/22/2024 03:14:39 PM Interpretation:Negative Performing Lab: Notes/Report: Reactive results will reflex RPR testing. TREPONEMAL AB TOTAL Non-Reactive Non-Reacti Lab specimens received at a [facility].?See result details for the performing location [...] Negative Lab specim ens received at a [facility].?See result details for the performing location information. RUBELLA ANTIBODY, IGG Reviewed date:09/24/2024 08:54:55 AM Interpretation:Immune Performing Lab: Notes/Report: Performed at: [address] [place] [id number] Supply Chain Director: Krishna Villalba PhD, Phone: [phone] RUBELLA ANTIBODIES, IGG (REF) 3.10 Immune >0. index Non-immune <0.90 Equivocal 0.90 - 0.99 Immune >0.99 Lab specimens received at a [facility].?See result details for the performing location information. CHLAMYDIA TRACHOMATIS, NEISS ERIA GONORRHOEAE, TRICHOMONAS VAGINALIS, PCR Reviewed date:09/24/2024 08:54:55 AM Interpretation:Negative Performing Lab: Notes/Report: Performed at: [address] [place] [address] [place] [id number] Supply Chain Director: Romi Ivory MD, Phone: [phone] CHLAMYDIA TRACHOMATIS, ROSELIA Negative Negative GONOCOCCUS BY ROSELIA Negative Negative TRICHOMONAS VAG Negative Negative Lab speci mens received at a [facility].?See result details for the performing location information. GLUCOSE, RANDOM Reviewed date:09/22/2024 03:14:39 PM Interpretation:Normal Performing Lab: Notes/Report: GLUCOSE RANDOM 99 65-99 mg/dL Lab speci mens received at a [facility].?See result details for the performing location information. CBC (NO DIFF) Reviewed date:09/22/2024 02:36:12 PM [...] 140-450 10*3/mm3 Lab specimens received at a [facility].?See result details for the performing location information. Non Invasive Testin g Reviewed date:10/06/2024 02:24:47 PM Interpretation:low fraction Performing Lab: Notes/Report: low fraction Reason For Referral No Information Medications Medication [...] Status W/U Status Risk Notes Problem Anxiety (15337944) Anxiety (F41.9) Active confirmed Problem Second trimester (24816853) Encounter for supervision of other normal in second trimester (Z34.82) Active confirmed Vital Signs Weight 186.4 lbs 10/28/2024 Encounters Encounter Location Date Provider Diagnosis [facility] [address] [facility] [address] [place] [address] 09/02/2024 [facility] with uncertain viability, single or unspecified fetus O36.80X0 [facility] [address] [facility] [address] [place] [address] 10/29/2024 Nemo James Yeast infection B37. 9 [facility] [address] [facility] [address] [place] [address] 10/30/2024 [facility] [address] [facility] [address] [place] [address] 09/22/2024 [facility] Encounter for test, result positive Z32.01 [facility] [address] [place] [address] 10/28/2024 Nemo James Encounter for supervision of other normal in second trimester Z34.82 ; 15 weeks gestation of Z3A.15 ; Vaginal discharge N89.8 ; Anxiety F41.9 and Acute nonintractable headache, unspecified headache type R51.9 [facility] [address] [facility] [address] [place] [address] 09/22/2024 Gina Roth with uncertain viability, single [...] 10/28/2024 Next Appt Details Provider Name:Gina Roth, 11/26/2024 11:00:00 AM, [address], [place], [address], Provider Name:Gina Roth, 11/26/2024 11:15:00 AM, [address], [place], [address], Provider Name:Gina Roth, 12/24/2024 11:30:00 AM, [address], [place], [address], Provider Name:Gina Roth, 01/21/2025 01:45:00 PM, [address], [place], [address], Provider Name:Gina Roth, 02/04/2025 11:15:00 AM, [address], [place], [address], Provider Name:Gina Gonzalez, 02/18/2025 01:00:00 PM, [address], [address], [place], [address], Provider Name:Nemo James, 03/03/2025 01:30:00 PM, [address], [address], [place], [address], Provider Name:Gina Roth, 03/18/2025 11:30:00 AM, [address], [address], [place], [address], Provider Name:Gina Roth, 03/25/2025 11:30:00 AM, [address], [address], [place], [address], Provider Name:Gina Roth, 04/01/2025 11:30:00 AM, [address], [address], [place], [address], Provider Name:Gina Roth, 04/08/2025 11:15:00 AM, [address], [address], [place], [address], Provider Name:Gina Roth, 04/15/2025 11:30:00 AM, [address], [address], [place], [address], Insurance Providers Payer Name Payer Address Payer Phone Subscriber Number Group Number Insured Name Patient Relationship to Insured Coverage Start Date Coverage End Date [facility] [address] [place] [phone] [id number] Jamarcus Negro Self - patient is the insured Medical (General) History Medical History History ICD Code Anxiety Depression ov cysts hashoimotos *Gestational diabetes mellit us in , Insulin controlled (Code also - Weeks of gestation Z3A) O24.414 Torsion of right ovary N83.511 Surgical History Surgery Date(Month/Year) Tonsilectomy 2003 Cholecystectomy 2012 2020 Hospitalization History Reason Date(Month/Year) tonsils c/s
[2024-11-19 10:56] LABS: Free T4 (Free Thyroxine) 0.86 ng/dl (0.78-2.19)
[2024-11-19 11:09] LABS: Thyroid Stimulating Hormone 0.44 uIU/mL (0.465-4.68)
[2024-11-20 12:15] LABS: FSH <0.3 mIU/mL (.); LH <0.3 mIU/mL (.)
== END 2024-11-19 23:59 | disposition home or self-care (01) ==
LOC: LAB 09:38
PROVIDERS: PCP Nurse Practitioner Family; Visit Provider Student in an Organized Health Care Education/Training Program
DX: D35.2 Benign neoplasm of pituitary gland (principal)
CPT/HCPCS: 36415; 82024; 82533; 83001; 83002; 84146; 84305; 84439; 84443

== ENCOUNTER 2025-01-22 15:52 | Outpatient (CLI) | payer OTHER, SELFPAY ==
--- OUTSIDE RECORDS SUMMARY | 2025-01-21 11:40 | XMS_ITS | Encounter Summary ---
Author Organization [facility] Address [address] [place] [address] Care Team Providers Care Band Machine Operator Name Role Phone Nayeli Copeland APRN Primary Care Provider [phone] [phone] Encounter Details Date Type Department Care Team (Late st Contact Info) Description 01/21/2025 11:40 AM EST Lab [facility] [place] [address] [facility] [address] [place] [address] care, subsequent , second trimester; 23 weeks gestation of Social History Tobacco Use Types Packs/Day Years Used Date Smoking Tobacco: Never Smokeless Tobacco: Never Alcohol Use Standard Drinks/Week Comments Not Currently 0 (1 standard drink = 0.6 oz pur e alcohol) socially [place] Depression Scale Answer Date Recorded [place] Depression Scale Total 6 06/27/2020 The thought [...] Preferred Language Not on file 12/20/2022 Comments Yes Sex and Gender Information Value Date Recorded Sex Assigned at Not on file Legal Sex Female 1:28 PM EDT Gender Identity Not on file Sexual Orientation Not on file documented as of this encounter Plan of Treatment Upcoming Encounters Date Type Department Care Team (Late st Contact Info) Description 04/08/2025 10:30 AM EST Pre-Admission Testing [facility] T [address] [place] [address] 04/10/2025 12:00 PM EST Hospital Encounter [facility] [address] [place] [address] Gina Roth MD [address] [place] [address] 04/10/2025 12:00 PM EST - 04/10/2025 1:00 PM EST Surgery [facility] [address] [place] [address] Gina Roth MD [address] [facility] [address] [place] [address] SECTION REPEAT Scheduled Procedures Name Priority Associated Diagnoses Date/Ti me SECTION REPEAT 03/14 12:00 PM EST documented as of this encounter Procedures Procedure Name Priority Date/Time Associated Diagnosis Comments POCT GLUCOSE FINGERSTICK Routine 01/21/2025 12:41 PM EST TREPONEMA PALLIDUM AB W/REFLEX RPR Routine 01/21/2025 12:40 PM EST care, subsequent , second trimester 23 weeks gestation of GLUCOSE, POST 50 GM GLUCOLA Routine 01/21/2025 12:40 PM EST care, subsequent , second trimester 23 weeks gestation of CBC (NO DIFF) Routine 01/21/2025 12:40 PM EST care, subsequent , second trimester 23 weeks gestation of ANTIBODY SCREEN Routine 01/21/2025 12:40 PM EST care, subsequent , second trimester 23 weeks gestation of documented in this encounter Results * (ABNORMAL) POC Glucose (01/21/2025 12:41 PM EST) Glucose 178(H) 70 - 130 mg/dL 01/21/2025 12:43 PM EST [facility] Comment:Serial Number: [id number] Blood 01/21/2025 12:4 1 PM EST 01/21/2025 12:43 PM EST us Gina Roth MD POINT OF CARE TEST ORDERABLES Final Result [facility]
[address] [place] [address], * Treponema pallidum AB w/Reflex RPR (01/21/2025 12:40 PM EST) Treponemal AB Total Non-Reacti ve Non-React consuelo 01/21/2025 11:50 PM EST [facility] Blood Venipuncture / Unknown 01/21/2025 12:40 PM EST 01/21/2025 1:17 PM EST Narrative [facility] - 01/21/2025 11:50 PM EST Reactive results will reflex RPR testing. us Gina Roth MD LAB BLOOD ORDERABLES Final Res ult [facility]
[address] [place] [address], [place] [phone] * (ABNORMAL) Glucose, Post 50 Gm Glucola (01/21/2025 12:40 PM EST) Pathologist [facility] Gestational GCT 175(H) 65 - 139 mg/dL 01/21/2025 6:03 PM EST [facility] Blood Venipuncture / Unknown 01/21/2025 12:40 PM EST 01/21/2025 1:17 PM EST Gina Roth MD LAB BLOOD ORDERABLES Final Res ult [facility]
[address] [place] [address], [place] [phone] * (ABNORMAL) CBC (No Diff) (01/21/2025 12:40 PM EST) [facility] WBC 10.22 3.40 - 10.80 10*3/mm3 01/21/2025 11:28 PM [facility] RBC 3.51(L) 3.77 - 5.28 10*6/mm3 01/21/2025 11:28 PM EST [facility] Hemoglobin 10.8(L) 12.0 - 15.9 g/dL 01/21/2025 11:28 PM [facility] Hematocrit 32.2(L) 34.0 - 46.6 % 01/21/2025 11:28 PM EST [facility] MCV 91.7 79.0 - 97.0 fL 01/21/2025 11:28 PM [facility] MCH 30.8 26.6 - 33.0 pg 01/21/2025 11:28 PM EST [facility] MCHC 33.5 31.5 - 35.7 g/dL 01/21/2025 11:28 PM EST [facility] RDW 13.7 12.3 - 15.4 % 01/21/2025 11:28 PM [facility] RDW-SD 45.3 37.0 - 54.0 fl 01/21/2025 11:28 PM EST [facility] MPV 13.0(H) 6.0 - 12.0 fL 01/21/2025 11:28 PM EST [facility] Platelets 139(L) 140 - 450 10*3/mm3 01/21/2025 11:28 PM EST [facility] Blood Venipuncture / Unknown 01/21/2025 12:40 PM EST 01/21/2025 1:17 PM EST us Gina Roth MD LAB BLOOD ORDERABLES Final Res ult [facility]
[address] [place] [address], [place] [phone] * Antibody Screen (01/21/2025 12:40 PM EST) [facility] Signature Antibody Screen Negative 01/21/2025 6:29 PM EST [facility] Blood Venipuncture / Unknown 01/21/2025 12:40 PM EST 01/21/2025 1:17 PM EST us Gina Roth MD BLOOD BANK TEST ORDERABLES Fin al Result Performing Organization Address City/[facility]/ZIP Co de Phone Number [facility]
[address] [place] [address], [place] [phone] documented in this encounter Visit Diagnoses Diagnosis care, subsequent , second trimester 23 weeks gestation of documented in this encounter Care Teams Band Machine Operator Relationship Specialty Start Date End Date Nayeli Copeland APRN [address] [place] [address] PCP - General Nurse Practitioner 05/26/20 documented as of this encounter
--- OUTSIDE RECORDS SUMMARY | 2025-01-22 15:54 | XMS_ITS | Encounter Summary ---
Author Organization [facility] Address [address] [place] [address] Care Team Providers Care Clinical Research Physician Name Role Phone Nayeli Copeland APRN Primary Care Provider [phone] [phone] Encounter Details Date Type Department Care Team (Latest Contact Info) Description 01/21/2025 Travel Social History Tobacco Use Types Packs/Day Years Used Date Smoking Tobacco: Never Smokeless Tobacco: Never Alcohol Use Standard Drinks/Week Comments Not Currently 0 (1 standard drink = 0.6 oz pur e alcohol) socially [place] Depression Scale Answer Date Recorded [place] Depression Scale Total 6 06/27/2020 The thought [...] Description 04/08/2025 10:30 AM EST Pre-Admission Testing [facility] PREADMISS[facility] T [address] [place] [address] 04/10/2025 12:00 PM EST Hospital Encounter [facility] [address] [place] [address] Gina Roth MD [address] [place] [address] 04/10/2025 12:00 PM EST - 04/10/2025 1:00 PM EST Surgery [facility] [address] [place] [address] Gina Roth MD [address] [address] SECTION REPEAT Scheduled Procedures Name Priority Associated Diagnoses Date/Ti me SECTION REPEAT 03/14 12:00 PM EST documented as of this encounter Visit Diagnoses Not on filedocumented in this encounter Care Teams Clinical Research Physician Relationship Specialty Start Date End Date Nayeli Copeland APRN [address] [place] [id number] PCP - General Nurse Practitioner 05/26/20 documented as of this encounter
--- OUTSIDE RECORDS SUMMARY | 2025-01-22 15:54 | XMS_ITS | Clinical Summary ---
Author Organization [facility] Address [address] [place] [address] Care Team Providers Care Java Integration Developer Name Role Phone Nayeli Copeland APRN Primary Care Provider [phone] [phone] Allergies No known active allergies Medications Vit-Fe [...] of right ovary and ovarian pedicle 11/18 Comments Yes Encounters Date Type Department Care Team Description 01/21/2025 11:40 AM EST Lab [facility] [place] [address] [facility] [address] [place] [address] care, subsequent , second trimester; 23 weeks gestation of 01/21/2025 Travel from Last 3 Months Family History [...] = 0.6 oz pur e alcohol) socially [place] Depression Scale Answer Date Recorded [place] Depression Scale Total 6 06/27/2020 The thought [...] 06/25/2020 11:05 AM EDT Plan of Treatment Upcoming Encounters Date Type Department Care Team (Late st Contact Info) Description 04/08/2025 10:30 AM EST Pre-Admission Testing [facility] PREADMISS[facility] T [address] [place] [address] 04/10/2025 12:00 PM EST Hospital Encounter [facility] [address] [place] [address] [place] [address] [place] [address], [place] [address] 04/10/2025 12:00 PM EST - 04/10/2025 1:00 PM EST Surgery [facility] [address] [place] [address] Gina Roth MD [address] [facility] [address] [place] [address] SECTION REPEAT Scheduled Procedures Name Priority Associated Diagnoses Date/Ti me SECTION REPEAT 03/14 12:00 PM EST Health Maintenance Due Date Last Done Comments Annual Gynecologic Pelvic an d Breast Exam 1991 TDAP/TD VACCINES (2 - Tdap) 10/14/2012 10/14/2002 ANNUAL PHYSICAL 09/25/2019 INFLUENZA VACCINE 10/10/2024 01/23/2023, 01/09/2022, 04/25/2021 RSV Vaccine - Adults (1 - 1-dose 75+ series) 06/12/2066 HEPATITIS C SCREENING Completed 09/22/2024 , 11/27/2019 Pneumococcal Vaccine 0-49 Aged Out No longer eligible based on patient's age to complete this topic Procedures Procedure Name Priority Date/Time Associated Diagnosis Comments POCT GLUCOSE FINGERSTICK Routine 01/21/2025 12:41 PM EST ANTIBODY SCREEN Routine 01/21/2025 12:40 PM EST care, subsequent , second trimester 23 weeks gestation of TREPONEMA PALLIDUM AB W/REFLEX RPR Routine 01/21/2025 12:40 PM EST care, subsequent , second trimester 23 weeks gestation of GLUCOSE, POST 50 GM GLUCOLA Routine 01/21/2025 12:40 PM EST care, subsequent , second trimester 23 weeks gestation of CBC (NO DIFF) Routine 01/21/2025 12:40 PM EST care, subsequent , second trimester 23 weeks gestation of HEPATITIS C ANTIBODY Routine 09/22/2024 10:46 AM EDT examination or test, positive result from Last 3 Months or Most Recently Relevant to Health Maintenance Results * (ABNORMAL) POC Glucose (01/21/2025 12:41 PM EST) Glucose 178(H) 70 - 130 mg/dL 01/21/2025 12:43 PM EST [facility] Comment:Serial Number: [id number] Blood 01/21/2025 12:4 1 PM EST 01/21/2025 12:43 PM EST us Gina Roth MD POINT OF CARE TEST ORDERABLES Final Result [facility]
[address] [place] [address], [place] [phone] * Treponema pallidum AB w/Reflex RPR (01/21/2025 12:40 PM EST) Pathologist [facility] Treponemal AB Total Non-Reacti ve Non-React consuelo 01/21/2025 11:50 PM EST [facility] Blood Venipuncture / Unknown 01/21/2025 12:40 PM EST 01/21/2025 1:17 PM EST Narrative [facility] - 01/21/2025 11:50 PM EST Reactive results will reflex RPR testing. us Gina Roth MD LAB BLOOD ORDERABLES Final Res ult [facility]
[address] [place] [address], [place] [phone] * (ABNORMAL) Glucose, Post 50 Gm Glucola (01/21/2025 12:40 PM EST) Gestational GCT 175(H) 65 - 139 mg/dL 01/21/2025 6:03 PM EST [facility] Blood Venipuncture / Unknown 01/21/2025 12:40 PM EST 01/21/2025 1:17 PM EST Gina Roth MD LAB BLOOD ORDERABLES Final Res ult [facility]
[address] [place] [address], * (ABNORMAL) CBC (No Diff) (01/21/2025 12:40 PM EST) WBC 10.22 3.40 - 10.80 10*3/mm3 01/21/2025 11:28 PM [facility] RBC 3.51(L) 3.77 - 5.28 10*6/mm3 01/21/2025 11:28 PM [facility] Hemoglobin 10.8(L) 12.0 - 15.9 g/dL 01/21/2025 11:28 PM [facility] Hematocrit 32.2(L) 34.0 - 46.6 % 01/21/2025 11:28 PM [facility] MCV 91.7 79.0 - 97.0 fL 01/21/2025 11:28 PM [facility] MCH 30.8 26.6 - 33.0 pg 01/21/2025 11:28 PM [facility] MCHC 33.5 31.5 - 35.7 g/dL 01/21/2025 11:28 PM [facility] RDW 13.7 12.3 - 15.4 % 01/21/2025 11:28 PM [facility] RDW-SD 45.3 37.0 - 54.0 fl 01/21/2025 11:28 PM [facility] MPV 13.0(H) 6.0 - 12.0 fL 01/21/2025 11:28 PM [facility] Platelets 139(L) 140 - 450 10*3/mm3 01/21/2025 11:28 PM EST [facility] Blood Venipuncture / Unknown 01/21/2025 12:40 PM EST 01/21/2025 1:17 PM EST us Gina Roht MD LAB BLOOD ORDERABLES Final Res ult Performing Organization Address [facility] Co de Phone Number [facility]
[address] [place] [address], [place] [phone] * Antibody Screen (01/21/2025 12:40 PM EST) [facility] Antibody Screen Negative 01/21/2025 6:29 PM EST [facility] Blood Venipuncture / Unknown 01/21/2025 12:40 PM EST 01/21/2025 1:17 PM EST us Gina Roth MD BLOOD BANK TEST ORDERABLES Fin al Result Performing Organization Address [facility] Co de Phone Number [facility]
[address] [place] [address], [place] [phone] * Hepatitis C Antibody (09/22/2024 10:46 AM EDT) [facility] Hepatitis C Ab Non-Reacti ve Non-Reacti ve 09/22/2024 2:51 PM EDT [facility] Blood Venipuncture / Unknown 09/22/2024 10:46 AM EDT 09/22/2024 10:46 AM EDT us Gina Roth MD LAB BLOOD ORDERABLES Final Res ult Performing Organization Address [facility] Co de Phone Number [facility]
[address] [place] [address], [place] [phone] from Last 3 Months or Most Recently Relevant to Health Maintenance Insurance [facility] Advance Directives * CPR (Attempt to Resuscitate) [...] pulse or is breathing): Full Care Teams Java Integration Developer Relationship Specialty Start Date End Date Nayeli Copeland APRN [address] [place] [phone] PCP - General Nurse Practitioner 05/26/20
[2025-01-22 18:14] LABS: T4 (Thyroxine) 10.7 ug/dl (5.53-11.0)
[2025-01-22 18:28] LABS: Thyroid Stimulating Hormone 1.72 uIU/mL (0.465-4.68)
== END 2025-01-22 23:59 | disposition home or self-care (01) ==
LOC: LAB 15:52
PROVIDERS: PCP Nurse Practitioner Family; Visit Provider Student in an Organized Health Care Education/Training Program
DX: E03.8 Other specified hypothyroidism (principal); E23.7 Disorder of pituitary gland, unspecified
CPT/HCPCS: 36415; 84436; 84443

== ENCOUNTER 2025-02-17 11:59 | Outpatient (CLI) | payer OTHER, SELFPAY ==
[2025-02-17 12:15] LABS: Hematocrit 34.9 % (37.0-47.0); Hemoglobin 11.6 g/dL (12.2-16.2); Immature Granulocytes % 3.5 %; Mean Corpuscular HGB Conc 33.2 g/dL (31.8-35.4); Mean Corpuscular Hemoglobin 31.2 pg (27.0-31.2); Mean Corpuscular Volume 93.8 fl (81-99); Nucleated Red Blood Cells % 0 %; Platelet Count 138 K/mm3 (142-424); Red Blood Count 3.72 M/mm3 (4.20-5.40); Red Cell Distribution Width-SD 51.9 fL; White Blood Count 9.2 K/mm3 (4.8-10.8)
[2025-02-17 13:03] LABS: Iron 84 ug/dL (37-170)
[2025-02-17 13:16] LABS: Total Iron Binding Capacity 520 ug/dL (265-497)
[2025-02-17 13:22] LABS: T4 (Thyroxine) 12.0 ug/dl (5.53-11.0)
[2025-02-17 13:36] LABS: Thyroid Stimulating Hormone 2.20 uIU/mL (0.465-4.68)
[2025-02-17 13:40] LABS: Ferritin 14.8 ng/ml (6.24-137)
== END 2025-02-17 23:59 | disposition home or self-care (01) ==
LOC: LAB 12:00
PROVIDERS: PCP Nurse Practitioner Family; Visit Provider Student in an Organized Health Care Education/Training Program
DX: D50.9 Iron deficiency anemia, unspecified (principal); E03.8 Other specified hypothyroidism; E23.7 Disorder of pituitary gland, unspecified; D35.2 Benign neoplasm of pituitary gland
CPT/HCPCS: 36415; 82024; 82533; 82728; 83540; 83550; 84436; 84443; 85025